=== PATIENT | female | born 1975 | race Caucasian/White ===

== ENCOUNTER → 2018-04-26 13:45 | Outpatient (CLI) | payer OTHER, SELFPAY ==
[2018-04-23 10:42] VITALS: BMI 20.9
--- NOTE | 2018-04-26 13:51 | BI_ITS ---
MAMMOGRAPHY - BILATERAL DIAGNOSTIC REASON FOR EXAM: Female, 43 years old. Left breast lump. PERTINENT HISTORY: Aunt with breast cancer. TECHNIQUE: Digital bilateral breast haja (3D mammographic acquisition) in the CC and MLO projections. 2-D mediolateral oblique (MLO) and craniocaudad (CC) views of both breasts were obtained. CAD: Full Field Digital Mammography with Computer Added Detection was performed. COMPARISON: Comparison is made with prior outside examination dated June 21, 2014. FINDINGS: Breast Composition: The breasts are heterogeneously dense, which may obscure small masses. The palpable abnormality corresponds to a 1 cm x 1 cm well-defined nodule in the axillary region of the left breast. This also evidence of a 1.3 cm x 1.5 cm nodule in the deep outer lateral portion of the left breast. Correlation with ultrasound is recommended. No other significant abnormalities are identified. There has been no significant change since the prior study. BI/DIAG MAMM W/CAD, BILAT IMPRESSION: Stable bilateral diagnostic mammogram. With the patient's history of a palpable abnormality in the upper outer quadrant of the left breast, correlation with ultrasound is recommended. ASSESSMENT CATEGORY: BIRADS Category 0: Incomplete. Need additional imaging evaluation. A letter regarding these results will be sent to the patient by the facility within 30 days. Approximately 10% of breast cancers are not detected by mammography. A normal mammogram should not delay biopsy of a clinically suspicious abnormality. Electronically Signed: Ok Dean MD at 14:56 EST Tel [phone], Service support ,
--- NOTE | 2018-04-26 13:51 | US_ITS ---
STUDY: ULTRASOUND BREAST - LEFT REASON FOR EXAM: Female, 43 years old. Palpable lump left breast. TECHNIQUE: Axial and longitudinal images of the LEFT breast were performed with a high resolution ultrasound transducer. COMPARISON: Comparison is made with prior mammogram done earlier in the day. FINDINGS: LEFT Breast: The palpable abnormality corresponds to a 1.6 cm x 1.6 centimeters x 1.1 cm well-defined slightly lobulated solid nodule at the 1:00 position of the breast 6 cm from the nipple. Blood flow is seen within the nodule. A biopsy is recommended. At the 2:00 position of the breast at 4 cm from the nipple, there is a 1.7 cm x 1.5 cm x 0.7 cm cyst. At the 2:00 additional breast or 6 on some nipple, there is a 5 mm x 5 mm x 3 mm cyst. US/Breast Limited Unilateral IMPRESSION: The palpable abnormality corresponds to a 1.6 cm x 1.6 cm x 1.1 cm hypoechoic solid nodule. A biopsy recommended for further evaluation. ASSESSMENT CATEGORY: BIRADS Category 4: Suspicious - Biopsy Should Be Considered. A letter regarding these results will be sent to the patient by the facility within 30 days. Electronically Signed: Ok Dean MD at 15:40 EST Tel [phone], Service support ,
--- OUTSIDE RECORDS SUMMARY | 2018-07-29 05:02 | XMS RPT_ITS ---
:1975 Author Organization OHIP Support Name Relationship Address Phone ROSS FRANCO Unavailable Unavailable + [facility] Unavailable [address] + [place] [address] ABEL BOLTON Unavailable [address] + [place] [address] ROSS FRANCO Unavailable . + [place] [address] [facility] Unavailable [address] + [place] [address] ABEL BOLTON Unavailable [address] + [place] [address] SALVADOR ROSS Unavailable . + [place] [address] [facility] Unavailable [address] + [place], [place] [address]ABEL PAL Unavailable [address] + [place] [address] SALVADOR ROSS Unavailable Unavailable + [facility] Unavailable [address] + [place] [address] ABEL BOLTON Unavailable [address] + [place] [address] SALVADOR ROSS Unavailable . + [place] [address] [facility] Unavailable [address] + [place] [address] CHE ABEL Unavailable [address] + [place] [address] SALVADOR ROSS Unavailable Unavailable + [facility] Unavailable [address] + [place] [address] ABEL BOLTON Unavailable [address] + [place] [address] [facility] Unavailable [address] + [place] [address] ABEL BOLTON Unavailable [address] + [place] [address] [facility] Unavailable [address] + [place] [address] [facility] Unavailable [address] + [place] [address] ABEL BOLTON Unavailable [address] + [place] [address] Care Team Providers Name Role Phone Kassandra Alfred Attending Unavailable Mily River Referring Unavailable BrookletKassandra salinas Attending Unavailable TimaKassandra salinas Referring Unavailable Primay Care Physicia, No Primary Care Unavailable Robotham, Kathryn Attending Unavailable Kira Sánchez Referring Unavailable Robotham, Kathryn Attending Unavailable Robotham, Kathryn Referring Unavailable Primay Care Physicia, No Primary Care Unavailable Robotham, Kathryn Attending Unavailable Primay Care Physicia, No Referring Unavailable Robotham, Kathryn Attending Unavailable Robotham, Kathryn Referring Unavailable Primay Care Physicia, No Primary Care Unavailable Kira Sánchez Attending Unavailable Aleta, Mily Referring Unavailable Aleta, Mily Primary Care Unavailable Robotham, Kathryn Attending Unavailable PROBLEMS PROBLEMS DATE TYPE CONDITION / CODE ATTENDING STATUS SOURCE 05/14/2018 Unknown G89.18 - Other acute Robotham, Active [place] postprocedural pain [facility] / G89.18(ICD-10) Hospital Repository 05/27/2018 Unknown D24.2 - Benign Robotham, Active [place] neoplasm of left [facility] breast / Hospital D24.2(ICD-10) Repository 04/26/2018 Unknown N63.20 - Unspecified BrookletKassandra salinas Active [place] lump in the left [facility] breast, unspecified Hospital quadrant / Repository N63.20(ICD-10) PROCEDURES PROCEDURES No Procedure Records FoundRESULTS RESULTS OPERATIVE REPORT Observed: 05/17/2018 Status: F Source: BEE 7:19 AM [facility] REPOSITORY [facility] Medical Records Department [address] [place] [address] Operative Report 05/14/18 1519 MR#: [id number] Acct: [id number] Name: TIGIST FRANCO Rep #: [id number] : 1975 43 From: Kathryn Cortez MD PCP: Care Physician, No Primary Status: [facility] Location: [facility] Report of Operation Date of Procedure: 05/14/18 Pre-Operative Diagnosis: Left breast benign phyllodes tumor Post-Operative Diagnosis: Same Surgery/Procedure Performed:: Excisional left breast biopsy, needle localization with ultrasound cyanide pot tender: Rosita Joya Type of Anesthesia:: General/Supplemental Anesthesiologist: Gerson Osman Special Medications: Clindamycin 600 IV x1 Specimen's removed: Left lumpectomy Estimated Blood Loss (mL): <10 cc Fluids Replaced: 1600 cc Description of Procedure: The patient was taken to the operating room and placed supine on the operating table. General anesthesia was induced. The left breast was prepped and draped in usual sterile fashion. A timeout was completed verifying correct patient, procedure, site, positioning, special equipment prior to beginning procedure. Ultrasound was used for the guided needle localization with the kopan's needle. A curvilinear incision was planned in such a way as to minimize the amount of dissection to reach the mass. Flaps were raised in the location of the wire confirmed. The wire was delivered into the wound. 2 silk ayrdxo-tq-dskuf stay suture was placed around the wire and used for traction. Dissection was then taken down circumferentially, taking care to include the entire localization needle and the entire nodule. The specimen and entire localizing wire were removed. The specimen was oriented and sent to radiology with the localization studies. Confirmation was received that the entire target lesion had been resected. The wound was irrigated. Hemostasis was checked. space was closed with [id number]-sz-[id number] 3-0 Vicryl suture. The breast incision was closed with interrupted sutures of 3-0 Vicryl and subcuticular sutures of 4-0 Monocryl. A dressing of fluff gauze and supportive bra placed. The patient tolerated procedure well was taken to the postanesthesia care in stable condition. - Complications none 05/17/18 0719 <Electronically signed by Kathryn Cortez MD> Date Kathryn Cortez MD CC: No Primary Care Physician; Kathryn Cortez MD Signed DISCHARGE INSTRUCTION Observed: 05/14/2018 Status: F Source: BEE 3:29 PM [facility] REPOSITORY [facility] Medical Records Department [address] [place] [address] Instructions for Home/Discharge Instructions 05/14/18 1527 MR#: [id number] Acct: [id number] Name: TIGIST FRANCO Rep #: [id number] : 1975 43 From: Kathryn Cortez MD PCP: Care Physician, No Primary Status: REG SDC Discharge Diet: Light diet - advance as tolerated Discharge Activity: May not drive while taking narcotic pain medications. Lifting Restrictions: no lifting >15 lbs for a few days on the left Call your doctor if your incision/area has: Continuous Slow Oozing, Sudden Increased Bleeding, Increased Pain/ Swelling, Increased Redness, Foul Smelling Discharge, Swelling at the incision site Call your doctor if you observe: Fever of 101 or Higher Remove Dressing in (days):: 2 Allergies/Adverse Reactions: Allergies amoxicillin trihydrate [From Augmentin] Allergy (Verified 05/14/18 12:40) Rash codeine Allergy (Verified 05/14/18 12:40) Rash potassium clavulanate [From Augmentin] Allergy (Verified 05/14/18 12:40) Rash Medications to take at Discharge psyllium husk 0.4 gram capsule 0.4 g PO DAILY 04/23/18 Hydrocodone Bitart/Apap 5-325 [Cyril 5MG-325MG] 1 - 2 tablet PO Q6H PRN PRN 4 Days #15 tablet 05/14/18 The following prescriptions were given: Hydrocodone Bitart/Apap 5-325 [Cyril 5MG-325MG] 1 - 2 tablet PO Q6H PRN PRN 4 Days #15 tablet PRN Reason: Pain Primary Care Physician: Care Physician,No Primary [Primary Care Provider] - Test Results: Test results from this visit will be discussed in further detail at your follow-up appointment, if applicable. Please Follow Up With: Kathryn Cortez MD - After 5:00/weekends call [phone] with any concerns When: Call for appointment in 2 weeks. Proposed Discharge Date: 05/14/18 05/14/18 1529 <Electronically signed by Kathryn Cortez MD> Date Kathryn Cortez MD CC: No Primary Care Physician Signed BREAST BIOPSY Observed: 05/14/2018 Status: F Source: BEE SPECIMEN 3:22 PM [facility] REPOSITORY [facility] Imaging Services [address] [place] [address] Breast Biopsy Specimen MR#: [id number] Acct: [id number] Name: TIGIST FRANCO Rep #: [id number] : 1975 F 43 From: Ok Dean MD PCP: Care Physician, No Primary Status: [facility] Study: Breast Biopsy Specimen Date of Exam: 05/14/18 Exam# [id number] Ordering Dr: Kathryn Cortez MD SURGICAL BREAST SPECIMEN RADIOGRAPH CLINICAL: Document presence of tissue clip marker in biopsy specimen. FINDINGS: Specimen shows presence of tissue clip marker. Electronically Signed: Ok Dean MD at 15:49 EST Tel [phone], Service support , BI/Breast Biopsy Specimen CC: No Primary Care Physician; Kathryn Cortez MD Apple Picking Supervisor: Signed BREAST MASTECTOMY Observed: 05/14/2018 Status: F Source: BEE (CHOOSE SIDE 2:30 PM [facility] REPOSITORY Patient: TIGIST FRANCO : 1975 (43/F) Acct Num: [id number] Phys: Kathryn Cortez MD Unit Num: [id number] Loc: [facility] Specimen: [id number] Received: 05/14/18 - 1806 Spec Type: BREAST TISSUES 1 TISSUES: Left breast, NOS COMMENT Reference is made to the patient's previous biopsy ([id number]) in which fibroadenoma/benign phyllodes tumor was identified. Case has been reviewed in consultation with Dr. Johnson who concurs with the above diagnosis. IDC:CE GROSS DESCRIPTION Received in fixative is one container labeled with the patient's name and designated left breast fibroadenoma. The specimen consists of an irregular fragment of wire-guided santos-yellow fatty tissue with no orientation measuring 3 x 2 x 2 cm. Two black sutures (one long and one short) are present. The specimen is inked, serially sectioned and totally submitted in four cassettes. / AM:paola 05/17/18 TC:1 CPT: 28141 HEADER OPERATION: Breast biopsy, ultrasound-guided NL in OR PRE-OP DIAGNOSIS: Benign phyllodes tumor of left breast TISSUE SUBMITTED: Left breast fibroadenoma/benign phyllodes tumor MICROSCOPIC DESCRIPTION Slides are reviewed. MICROSCOPIC DIAGNOSIS Tumor of left breast, excision: Benign phyllodes tumor, completely excised. Changes of previous biopsy. AM:paola 05/18/18 Signed Denzel Delaney DO 05/18/18 <signature on file> Performed By: #### PBREAST #### [facility] [address] [place], [place], [address] SURGERY VISIT REPORT Observed: 05/10/2018 Status: F Source: [place] 10:24 AM [facility] REPOSITORY [facility] [address] [place] [address] OFFICE VISIT Date of Service: 05/10/18 MR#: [id number] Acct: [id number] Name: TIGIST FRANCO Rep #: [id number] : 1975 Provider: Kathryn Cortez MD Age/Sex: 43/F Location: [facility] Status: Signed Intake Intake Visit Reasons: L Breast bx results and discuss Surgery Chief Complaint: post left breast biopsy Commercial Artist Lettering Required: No Is patient in pain?: No Allergies amoxicillin trihydrate [From Augmentin] Allergy (Verified 05/10/18 09:59) Rash codeine Allergy (Verified 05/10/18 09:59) Rash potassium clavulanate [From Augmentin] Allergy (Verified 05/10/18 09:59) Rash Medications psyllium husk 0.4 gram capsule 0.4 g PO DAILY 04/23/18 [History Confirmed 04/28/18] Is last menstrual period known: No Post menopausal: No Patient : No Subjective Details: Patient presents status post left breast biopsy ultrasound- guided. Pathology showed fibroadenoma/benign phyllodes, no malignancy. Patient states the site is doing well she is curious if the areas may be gotten a little bigger. Objective Details: Left breast: At about 1:00 6 cm from the nipple at 2 cm x 2 cm mobile mass, biopsy site healing well. Assessment AND Plan Problems 1. 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 Discussed the procedure along with risks including but not limited to bleeding, infection, seroma/hematoma, and anesthesia. Patient had no further questions at this time. Is agreeable to proceed with excisional breast biopsy. Kathryn Cortez M.D. Pager: [phone] [facility] [address] [place] [address], [address] [place] [address] Office: 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 [place] [address] OFFICE VISIT Date of Service: 04/28/18 MR#: [id number] Acct: [id number] Name: TIGIST FRANCO Rep #: [id number] : 1975 Provider: Kathryn Cortez MD Age/Sex: 43/F Location: [facility] Status: Signed Intake Vital Signs04/28/18 Body Mass Index (BMI) 20.9 04/28/18 Height 5 ft 3 in 04/28/18 Weight: 118 lb Intake Visit Reasons: Birads 4 L Breast U/S Mammo 04/26 Chief Complaint: left breast lump Commercial Artist Lettering Required: No Is patient in pain?: No Allergies amoxicillin trihydrate [From Augmentin] Allergy (Verified 04/28/18 09:56) Rash codeine Allergy (Verified 04/28/18 09:56) Rash potassium clavulanate [From Augmentin] Allergy (Verified 04/28/18 09:56) Rash Medications psyllium husk 0.4 gram capsule 0.4 g PO DAILY 04/23/18 [History Confirmed 04/28/18] PFSH Medical History Left breast lump (Acute) Abnormal mammogram of left breast (Acute) Fatigue (Acute) Surgical History History of bladder surgery (Acute) Hx of cone biopsy of cervix (Acute) Hx of hysterectomy (Acute) History of tonsillectomy and adenoidectomy (Acute) Hx of cholecystectomy (Acute) Gallbladder Removal (Acute) Tubal occlusion (Acute) tonsilectomy (Acute) hysterectomy (Acute) Family History Mother Hypertension Grandfather Cancer Grandmother Cancer Aunt Breast cancer Social History Smoking Status: Light Smoker (<10/day) second hand exposure: Yes alcohol intake: current alcohol intake frequency: holidays/special occasions only substance use type: does not use caffeine: Yes seatbelt use: always do you feel safe at home: Yes Female Reproductive History Menstrual Ab spontaneous: 2 HPI HPI HPI: TIIGST FRANCO, is a 43 F who presents to the office today for palpable left breast mass. Patient felt his last . She denies any pain or any changes to overlying skin or any trauma to either breast or any nipple discharge. Patient did have mammogram as well as an ultrasound which ultrasound did identify that the palpable abnormality corresponds to a 1.6 cm x 1.6 cm x 1.1 cm well-defined slightly lobulated solid nodule at 1:00 6 cm from the nipple and was given a BI-RADS 4 Rosy model Age: 43 Age of menses: 13 Age at time of first child: 21 Family history of breast cancer: No immediate relatives, 2 maternal aunts in their late 50s/early 60s Number of past breast biopsies: None Number breast biopsy showing atypical hyperplasia: N/A Race/ethnicity: 5 year risk 0.6% (average of 0.9%) Lifetime risk 8% (average 12%) ROS General General: Yes fatigue; no weight change or colon cancer Breast Breast: Yes left breast lump, abnormal US and abnormal mammogram; no right breast lump, nipple discharge, breast pain or breast enlargement Exam Const General: cooperative, comfortable, no acute distress Chest Breast Palpation: No nipple discharge Other: Left breast: Centimeter by centimeter mobile mass at 1:00 about 6 cm from the nipple, nontender, no change the overlying skin, otherwise the breasts is fibroglandular in nature no other masses appreciated in the left or right breast. No nipple discharge bilaterally no supraclavicular or axillary adenopathy bilaterally. Office Procedures Biopsy Provider Documentation Reviewed the ultrasound and mammography with patient and discussed the need for biopsy. Reviewed the procedure of biopsy with the mammotome vacuum assisted device. A marker clip will be placed to identify the location. Patient has been counseled to the risks/benefits of the procedure. I have explained the risks of the surgery, including but not limited to: infection, bleeding, injury to any blood vessels/nerves, scar tissue, missing the lesion, further surgery, etc. - the patient understands and agrees to proceed. I have answered all of the patient's questions to her satisfaction and she has no further questions. Signed consent is completed. Procedure: ultrasound-guided core biopsy Description of procedure: Patient was brought into the ultrasound room in the left breast was marked. A timeout was completed verifying correct patient, procedure, site, specially, prior to beginning procedure. The left breast was prepped and draped in usual sterile fashion and using local anesthesia was obtained with 1% lidocaine with epi. The lesion was located with the ultrasound at 1:00 6 cm from nipple. Small incision was made with 11 blade to introduced the mammotome through the skin. Under ultrasound guidance multiple core samples were obtained using then 13-gauge mammotome and sent in formalin for pathology. The mammotome mammostar clip was then deployed into the biopsy cavity under ultrasound guidance and a picture was taken. Upon completion procedure hemostasis was obtained and a Steri- Strip and OpSite were placed. The patient tolerated the procedure well and left the office in good condition. Alert Brenton Yes Biopsy Breast Biopsy: 76370 US Guidance Procedure Time Out Time Out Informed consent given: Yes Consent signed: Yes Time out checklist: patient, procedure, site marked/identified, positioning of patient, supplies available, allergies confirmed, team agrees on procedure Time out staff in room: Yes Time out verified: Yes Time out date: 04/28/18 Time out time: 10:20 Assessment AND Plan Problems 1. Breast mass, left N63.20 Plan Patient underwent ultrasound-guided left breast biopsy in office. Patient tolerated procedure well. Will contact patient with pathology results in 3-5 days. Patient had no further questions at this time. Kathryn Cortez M.D. Pager: [phone] [facility] [address] [place] [address], [address] [place] [address] Office: [phone] Plan Detail Follow Up We will contact with pathology results Coding Level of Care Code Attention Brenton Diagnoses Breast mass, left N63.20 Additional Codes Biopsy - Breast Biopsy: 46579 US Guidance (05958) Comment [id number] 04/29/18 0951 <Electronically signed by Kathryn Cortez MD> Date Kathryn Cortez MD Cosigner Signature: Date (if applicable) CC: Kira Sánchez MD BREAST BIOPSY Observed: 04/28/2018 Status: F Source: BEE (CHOOSE SITE) 10:30 AM [facility] REPOSITORY Patient: TIGIST FRANCO : 1975 (43/F) Acct Num: [id number] Phys: Diego DOMINGUEZ,[facility] Unit Num: [id number] Loc: [facility] Specimen: [id number] Received: 04/28/18 - 1318 Spec Type: BREAST BX TISSUES 1 TISSUES: Left breast, NOS COMMENT Correlation with clinical, radiologic findings and appropriate follow up are necessary. Case has been reviewed in consultation with Dr. Delaney who concurs with the above diagnosis. IDC:AM GROSS DESCRIPTION Received in fixative is one container labeled with the patient's name and designated left breast biopsy. The specimen consists of multiple irregular and elongated fragments of yellow soft tissue that in aggregate measure 2.5 x 1.2 x 0.1 cm. The specimen is totally submitted in one cassette. / AM:paola TC:1 CPT: 72554 HEADER OPERATION: Ultrasound-guided mammotome left breast at 1 o'clock, 6 cm from nipple PRE-OP DIAGNOSIS: Abnormal mammogram left breast TISSUE SUBMITTED: Left breast biopsy at 1 o'clock, 6 cm from nipple MICROSCOPIC DESCRIPTION Slides are reviewed. MICROSCOPIC DIAGNOSIS Left breast, 1 o'clock at 6 cm from nipple, ultrasound-guided mammotome core biopsy: Fibroadenoma/benign phyllodes tumor. Negative for atypia or malignancy. SJ:paola 04/29/18 Signed Layton Ramsey MD 04/29/18 <signature on file> Performed By: #### PBRBX #### [facility] [address] [place], [address] DIAG MAMM W/CAD, Observed: 04/26/2018 Status: F Source: BEE BILAT 1:51 PM [facility] REPOSITORY [facility] Imaging Services [address] [place] [address] DIAG MAMM W/CAD, BILAT MR#: [id number] Acct: [id number] Name: TIGIST FRANCO Rep #: [id number] : 1975 F 43 From: Ok Dean MD PCP: Care Physician, No Primary Status: REG CLI Study: DIAG MAMM W/CAD, BILAT Date of Exam: 04/26/18 Exam# [id number] Ordering Dr: Kassandra Alfred SUBSTATION OPERATOR HELPER GENERATION-C MAMMOGRAPHY - BILATERAL DIAGNOSTIC REASON FOR EXAM: Female, 43 years old. Left breast lump. PERTINENT HISTORY: Aunt with breast cancer. TECHNIQUE: Digital bilateral breast haja (3D mammographic acquisition) in the CC and MLO projections. 2-D mediolateral oblique (MLO) and craniocaudad (CC) views of both breasts were obtained. CAD: Full Field Digital Mammography with Computer Added Detection was performed. COMPARISON: Comparison is made with prior outside examination dated June 21, 2014. FINDINGS: Breast Composition: The breasts are heterogeneously dense, which may obscure small masses. The palpable abnormality corresponds to a 1 cm x 1 cm well- defined nodule in the axillary region of the left breast. This also evidence of a 1.3 cm x 1.5 cm nodule in the deep outer lateral portion of the left breast. Correlation with ultrasound is recommended. No other significant abnormalities are identified. There has been no significant change since the prior study. BI/DIAG MAMM W/CAD, BILAT IMPRESSION: Stable bilateral diagnostic mammogram. With the patient's history of a palpable abnormality in the upper outer quadrant of the left breast, correlation with ultrasound is recommended. ASSESSMENT CATEGORY: BIRADS Category 0: Incomplete. Need additional imaging evaluation. A letter regarding these results will be sent to the patient by the facility within 30 days. Approximately 10% of breast cancers are not detected by mammography. A normal mammogram should not delay biopsy of a clinically suspicious abnormality. Electronically Signed: Ok Dean MD at 14:56 EST Tel [phone], Service support , CC: CHARLETTE Alfred; No Primary Care Physician Apple Picking Supervisor: Signed BREAST LIMITED Observed: 04/26/2018 Status: F Source: BEE UNILATERAL 1:51 PM [facility] REPOSITORY [facility] Imaging Services [address] [place] [address] Breast Limited Unilateral MR#: [id number] Acct: [id number] Name: TIGIST FRANCO Rep #: [id number] : 1975 F 43 From: Ok Dean MD PCP: Care Physician, No Primary Status: REG CLI Study: Breast Limited Unilateral Date of Exam: 04/26/18 Exam# [id number] Ordering Dr: Kassandra Alfred SUBSTATION OPERATOR HELPER GENERATION-C STUDY: ULTRASOUND BREAST - LEFT REASON FOR EXAM: Female, 43 years old. Palpable lump left breast. TECHNIQUE: Axial and longitudinal images of the LEFT breast were performed with a high resolution ultrasound transducer. COMPARISON: Comparison is made with prior mammogram done earlier in the day. FINDINGS: LEFT Breast: The palpable abnormality corresponds to a 1.6 cm x 1.6 centimeters x 1.1 cm well-defined slightly lobulated solid nodule at the 1:00 position of the breast 6 cm from the nipple. Blood flow is seen within the nodule. A biopsy is recommended. At the 2:00 position of the breast at 4 cm from the nipple, there is a 1.7 cm x 1.5 cm x 0.7 cm cyst. At the 2:00 additional breast or 6 on some nipple, there is a 5 mm x 5 mm x 3 mm cyst. US/Breast Limited Unilateral IMPRESSION: The palpable abnormality corresponds to a 1.6 cm x 1.6 cm x 1.1 cm hypoechoic solid nodule. A biopsy recommended for further evaluation. ASSESSMENT CATEGORY: BIRADS Category 4: Suspicious - Biopsy Should Be Considered. A letter regarding these results will be sent to the patient by the facility within 30 days. Electronically Signed: Ok Dean MD at 15:40 EST Tel [phone], Service support , CC: CHARLETTE Alfred; No Primary Care Physician Apple Picking Supervisor: Signed STAFF AUDITOR OFFICE VISIT Observed: 04/23/2018 Status: F Source: [place] REPORT 10:54 AM [facility] REPOSITORY [facility] [address] [place] [address] OFFICE VISIT Date of Service: 04/23/18 MR#: [id number] Acct: [id number] Name: TIGIST FRANCO Rep #: [id number] : 1975 Provider: CHARLETTE Alfred Age/Sex: 43/F [place] [facility]: Signed Intake Vital Signs04/23/18 Height 5 ft 3 in 04/23/18 Weight: 118 lb 04/23/18 Body Mass Index (BMI) 20.9 04/23/18 Blood Pressure 92/58 L Intake Visit Reasons: LEFT BREAST LUMP Chief Complaint: left breast lump Commercial Artist Lettering Required: No Is patient in pain?: No Allergies amoxicillin trihydrate [From Augmentin] Allergy (Verified 04/23/18 10:43) Rash codeine Allergy (Verified 04/23/18 10:43) Rash potassium clavulanate [From Augmentin] Allergy (Verified 04/23/18 10:43) Rash Medications promethazine 25 mg tablet 25 mg PO Q6H PRN PRN tab 04/23/18 [History] psyllium husk 0.4 gram capsule 0.4 g PO DAILY 04/23/18 [History Confirmed 04/23/18] Is last menstrual period known: No Post menopausal: No Patient : No : No PFSH Surgical History Gallbladder Removal (Acute) Tubal occlusion (Acute) hysterectomy (Acute) tonsilectomy (Acute) Family History Mother Hypertension Grandfather Cancer Grandmother Cancer Social History Smoking Status: Light Smoker (<10/day) alcohol intake: current alcohol intake frequency: holidays/special occasions only substance use type: does not use seatbelt use: always do you feel safe at home: Yes HPI LEFT BREAST LUMP: Details: TIGIST FRANCO is a 43 year old who presents for breast lump left breast noted last night. Does routine breast exams. Pregancy History 3 Elective abortions Hx Para Spontaneous abortions 2 Exam Chest Chest palpation AND inspection: normal inspection of the chest Breast inspection: normal inspection of the breasts Breast palpation: normal palpation of the breasts (right), abnormal palpation of the breast (left, just below axilla, 6cm from areola, 1:00 position.) left upper outer: mass (firm, mobile) Assessment AND Plan Problems 1. Left breast mass N63.20 Plan Bilateral diagnostic mammogram with left breast ultrasound Orders Orders: Coding Level of Care Code Off vis,est,level 3 Diagnoses Left breast mass N63.20 04/23/18 1054 <Electronically signed by Kassandra LANDA> Date Kassandra LANDA Cosigner Signature: Date (if applicable) CC: STAFF AUDITOR OFFICE VISIT Observed: 10/31/2017 Status: F Source: [place] REPORT 6:36 AM [facility] [address] [place] [address] OFFICE VISIT Date of Service: 10/30/17 MR#: [id number] Acct: [id number] Name: TIGIST FRANCO Rep #: [id number] : 1975 Provider: Kira Sánchez MD Age/Sex: 42/F [place] [facility] [place]: Signed Intake Vital Signs10/30/17 Height 5 ft 3 in 10/30/17 Weight: 120 lb 6 oz 10/30/17 Body Mass Index (BMI) 21.3 10/30/17 Blood Pressure 110/76 Intake Visit Reasons: BLEEDING Is patient in pain?: Yes (lower back pain) Pain scale (1-10): 5 Allergies amoxicillin trihydrate [From Augmentin] Allergy (Verified 10/30/17 10:03) Rash codeine Allergy (Verified 10/30/17 10:03) Rash potassium clavulanate [From Augmentin] Allergy (Verified 10/30/17 10:03) Rash Medications Hydrocodone/Acetaminophen [Vicodin 5-300 mg Tablet] 1 tab PO Q6H PRN PRN #12 tab 05/18/13 [Rx Confirmed 10/30/17] Metronidazole [Flagyl] 500 mg PO Q6H #40 tab 05/18/13 [Rx Confirmed 10/30/17] Psyllium [Metamucil] 1 packet PO DAILY 05/18/13 [History Confirmed 10/30/17] proMETHazine tablet [Phenergan] 25 mg PO Q6H PRN PRN #12 tab 05/18/13 [Rx Confirmed 10/30/17] metronidazole 500 mg tablet 500 mg PO BID 7 Days #14 tab 10/29/17 [Rx Confirmed 10/30/17] ciprofloxacin 500 mg tablet 500 mg PO BID 3 Days #6 tab 10/30/17 [Rx Confirmed 10/30/17] PFSH Surgical History Gallbladder Removal (Acute) Tubal occlusion (Acute) hysterectomy (Acute) tonsilectomy (Acute) Family History Mother Hypertension Grandfather Cancer Grandmother Cancer Social History Smoking Status: Light Smoker (<10/day) alcohol intake: current alcohol intake frequency: holidays/special occasions only substance use type: does not use seatbelt use: always do you feel safe at home: Yes HPI BLEEDING: Details: TIGIST FRANCO is a 42 year old who presents for bleeding and dysuria yesterday, getting ready to go on vacation. she denies recent intercourse and denies pelvic pain. she has a history of a hysterectomy several years ago Pregancy History 3 Elective abortions Hx Para Spontaneous abortions 2 ROS Const Constitutional: Reports system reviewed and no additional complaints, except as docu GI GI: Reports system reviewed and no additional complaints, except as docu : Reports as per HPI Exam Const General: cooperative, healthy appearing, comfortable, no acute distress External Female Exam: normal external appearance, normal appearance of the urethra Urethra: normal appearance of the urethra Speculum Exam - Vagina: normal appearance of the vagina, other (normal vaginal length, apex well supprted and healed, intact no granulation) Speculum Exam - Cervix: cervix absent Bimanual Exam- Vagina AND Uterus: uterus absent Bimanual Exam- Adnexa, other: adnexae non-tender, pelvic support normal Pelvic Support: normal Other: vaginal cuff normal and intact, good vaginal length, no granulation tissue present Assessment AND Plan Problems 1. Dysuria R30.0 Plan Orders placed: none ACOG trimester education reviewed and updated. see problem list details for updated plan management information. GA appropriate handout given. Medications Changed: Coding Level of Care Code Off vis,est,level 3 Diagnoses Dysuria R30.0 10/31/17 0636 <Electronically signed by Kira Sánchez MD> Date Kira Sánchez MD Cosigner Signature: Date (if applicable) CC: PROGRESS Observed: 10/30/2017 Status: COMPLETED Source: [place] 9:20 AM [facility] REPOSITORY O ID: [id number] Author: Liliya Mora Service: (none) Author Type: Nurse Practitioner Type: Progress Notes Filed: 10/30/2017 9:39 AM Note Text: Subjective HPI HPI Tigist Franco is a 42 year old female who presents today for CC of vaginal bleeding, possible UTI This started . She called Dr. Sánchez's office and was placed on flagyl and told if bleeding does not stop to call the office on Thursday to be seen. She has a history of a hysterectomy and bladder sling, unsure if she had mesh placed. She does have urinary frequency and urgency, but this started over the past several months. She denies pain with urination. Risk factors sexually active. PMH LAVH, stress incontinence, bladder sling. BP 100/70 Pulse 90 Temp 36.1 ?C (97 ?F) (Left Tympanic) Resp 16 Wt 54.4 kg (120 lb) LMP 11/30/2011 BMI 20.92 kg/m? ALLERGIES Allergen Reactions - Augmentin [Amoxicil* Rash - Ceftin [Cefuroxime * ?Itching possibly - Codeine Rash - Prednisone Intolerance heart racing ACTIVE PROBLEM LIST Allergic Rhinitis, Cause Unspecified Unspecified Musculoskeletal Disorders and Symptoms Referable to Neck Stress Incontinence Family History Problem Relation Age of Onset - Breast Cancer Maternal Aunt - Cancer Maternal Aunt - Colon Cancer Maternal Grandfather - Colon Cancer Paternal Grandmother - Hypertension Mother Social History Marital status: Spouse name: Shawn Years of education: Number of children: 3 Occupational History Occupation Employer Comment [employer]* Part-time Social History Main Topics Smoking status: Current Some Day Smoker Packs/day: 0.00 Years: 1.00 Types: Cigarettes Smokeless tobacco: Never Used Comment: 5 cigarettes per week Alcohol use: No Drug use: No Sexual activity: Yes Partners with: Male control/protection: Surgical Comment: Hysterectomy Social History Narrative 3 kids Dental assist Review of Systems Constitutional: Negative for chills, fever and malaise/fatigue. Genitourinary: Positive for frequency and urgency. Negative for dysuria, flank pain and hematuria. Vaginal bleeding Skin: Negative for rash. Neurological: Negative for headaches. Objective Physical Exam ASSESSMENT/PLAN: 1. Vaginal bleeding - ICD9: 623.8, ICD10: N93.9 (primary diagnosis) Due to nature of symptoms, called Dr. Sánchez's office and they agreed to see patient today, sent directly to office. 2. Gross hematuria - ICD9: 599.71, ICD10: R31.0 - UA DIP B/O Diagnosis and treatment plan were discussed and questions were answered to the patient's satisfaction. Pt acknowledged understanding of concepts and follow up plan. Specific signs and symptoms that would indicate the need for higher level of care were discussed in detail warranting prompt ER evaluation. Liliya Mora APRN.CNP CNOV Observed: 10/30/2017 Status: COMPLETED Source: [place] 9:00 AM [facility] REPOSITORY Office Visit ([facility]) SALVADORTIGIST CALDERON ([id number]) 1975 F Date Time Provider Department 10/30/17 9:00 AM LILIYA MORA (ESTRELLA) [facility] During your visit today, we recorded the following information about you: Temperature Pulse Respiration Blood pressure 97 degrees 90/minute 16/minute 100/70 Weight 54.4 kg Liliya Mora APRN.CNP 10/30/2017 9:39 AM Signed Subjective HPI HPI Tigist Fountain Salvador is a 42 year old female who presents today for CC of vaginal bleeding, possible UTI This started . She called Dr. Sánchez's office and was placed on flag and told if bleeding does not stop to call the office on Thursday to be seen. She has a history of a hysterectomy and bladder sling, unsure if she had mesh placed. She does have urinary frequency and urgency, but this started over the past several months. She denies pain with urination. Risk factors sexually active. PMH LAVH, stress incontinence, bladder sling. BP 100/70 Pulse 90 Temp 36.1 ?C (97 ?F) (Left Tympanic) Resp 16 Wt 54.4 kg (120 lb) LMP 11/30/2011 BMI 20.92 kg/m? ALLERGIES Allergen Reactions - Augmentin [Amoxicil* Rash - Ceftin [Cefuroxime * ?Itching possibly - Codeine Rash - Prednisone Intolerance heart racing ACTIVE PROBLEM LIST Allergic Rhinitis, Cause Unspecified Unspecified Musculoskeletal Disorders and Symptoms Referable to Neck Stress Incontinence Family History Problem Relation Age of Onset - Breast Cancer Maternal Aunt - Cancer Maternal Aunt - Colon Cancer Maternal Grandfather - Colon Cancer Paternal Grandmother - Hypertension Mother Social History Marital status: Spouse name: Shawn Years of education: Number of children: 3 Occupational History Occupation Employer Comment [employer]* Part-time Social History Main Topics Smoking status: Current Some Day Smoker Packs/day: 0.00 Years: 1.00 Types: Cigarettes Smokeless tobacco: Never Used Comment: 5 cigarettes per week Alcohol use: No Drug use: No Sexual activity: Yes Partners with: Male control/protection: Surgical Comment: Hysterectomy Social History Narrative 3 kids Dental assist Review of Systems Constitutional: Negative for chills, fever and malaise/fatigue. Genitourinary: Positive for frequency and urgency. Negative for dysuria, flank pain and hematuria. Vaginal bleeding Skin: Negative for rash. Neurological: Negative for headaches. Objective Physical Exam ASSESSMENT/PLAN: 1. Vaginal bleeding - ICD9: 623.8, ICD10: N93.9 (primary diagnosis) Due to nature of symptoms, called Dr. Sánchez's office and they agreed to see patient today, sent directly to office. 2. Gross hematuria - ICD9: 599.71, ICD10: R31.0 - UA DIP B/O Diagnosis and treatment plan were discussed and questions were answered to the patient's satisfaction. Pt acknowledged understanding of concepts and follow up plan. Specific signs and symptoms that would indicate the need for higher level of care were discussed in detail warranting prompt ER evaluation. Liliya Mora APRN.CO FOUNDER Referring Provider: SELF [200] Allergies As of Date: 10/30/2017 Noted Allergy Reaction AUGMENTIN (AMOXICILLIN-POT CLAVUL*01/31/2005 2 - Rash CEFTIN (CEFUROXIME AXETIL) 05/31/2009 Comments: ?Itching possibly CODEINE 01/31/2005 2 - Rash PREDNISONE 06/20/2016 5 - Intolerance Comments: heart racing Date Reviewed: 10/30/2017 Reviewed by: Liliya (Safety Lamp Keeper) Morgan - Fully Assessed Reason for Visit: Hematuria [335] Primary Visit Diagnosis:Vaginal bleeding [N93.9] Other Visit Diagnosis:Gross hematuria [R31.0] Order(s):UA DIP B/O [7231405] Order #: [id number] Prescriptions as of 10/30/2017 Sig: FLAGYL ORAL Take by mouth. * METAMUCIL (SUGAR) ORAL POWDER Take one(1) tablet daily. ALBUTEROL SULFATE HFA 90 MCG/* Inhale 2 Puffs as instructed * Problem List As Of Date 10/30/2017 Noted Resolved PANIC TYPE ANXIETY [F41.0] INVALID FOR*05/22/2009 ALLERGIC RHINITIS NOS [J30.9] INVALID FOR* NECK DISORDER/SYMPT NOS [M53.82] INVALID FOR* Skin Lesion [L98.9] INVALID FOR*05/22/2009 Menometrorrhagia [N92.1] INVALID FOR*02/18/2012 Mixed incontinence [N39.46] INVALID FOR*05/26/2014 Stress incontinence [N39.3] INVALID FOR* Encounter Status:Closed by LILIYA MORA CNP on 10/30/17 ALLERGIES ALLERGIES DATE TYPE / NAME / CODE REACTION SEVERITY SOURCE CODE 05/14/2018 Drug amoxicillin Rash Unknown [place] Allergy/41 trihydrate/[id number] [facility] [id number]( 2707(RXNORM) [facility]) Repository 05/14/2018 Drug potassium Rash Unknown [place] Allergy/41 clavulanate/F0000 [facility] [id number]( 90617(RXNORM) [facility]) Repository 05/14/2018 Drug codeine/[id number] Rash Unknown [place] Allergy/41 0(RXNORM) [facility] 1719620([facility]) Repository 06/20/2016 DRUG PREDNISONE INTOLERANCE [address] [id number]( Repository [facility]) 05/31/2009 DRUG CE[facility]OXIME AXETIL [address] [id number] 01/31/2005 DRUG/17088 AMOXICILLIN-POT RASH [facility] 1003(SN[place] CLAVULANATE [facility] [place] [facility]) Repository 01/31/2005 DRUG CODEINE RASH [address] [id number][facility] ENCOUNTERS ENCOUNTERS ADMIT/DISCHARGE ACCOUNT ADMITTING ENCOUNTER LOCATION SOURCE NUMBER CLASS 05/14/2018/05/14/19 [id number] Ambulatory [place] 19 [facility] ing:SDCRoom: Repository AC18 05/14/2018/05/14/19 [id number] Ambulatory BMSBuilding:B [place] 19 MS.[facility] Repository 05/10/2018/05/10/20 [id number] Ambulatory BMSBuilding:B [place] 18 MS.[facility] Repository 04/28/2018 [id number] Ambulatory [facility] ing:LABSPEC Repository 04/28/2018/04/28/20 [id number] Ambulatory BMSBuilding:B [place] 18 MS.[facility] Repository 04/26/2018 [id number] Ambulatory [facility] ing:OPUS Repository 04/23/2018/04/23/20 [id number] Ambulatory BMSBuilding:B [place] 18 MS.[facility] Repository 10/30/2017/10/31/19 [id number] Ambulatory BMSBuilding:B [place] 18 MS.[facility] Repository 10/30/2017/10/31/19 [id number] Ambulatory [address] Repository PAYERS PAYERS ENCOUNTER GUARANTOR PAYER SUBSCRIBER SOURCE 05/14/2018 TIGIST L Primary TIGIST L [place] [id number] Insurance:ANTHEMPolic HENSELDOB: [facility] DRWEST y Number: [id number] [id number] Repository 42[address]Uja: [phone] Date:5042-54-57QP [phone] () [address] [place] [address] 54858DS: 05/14/2018 Secondary NOT GIVENUNK [place] Insurance:SELF PAY [facility] Number: Effective Repository Date:2018-05-12 05/14/2018 TIGIST L Primary TIGIST L [place] [id number] Insurance:ANTHEMPolic HENSELDOB: [facility] DRWEST y Number: [id number] [id number] Repository [address]Ber: [phone] Date:9908-97-45XQ [phone] () [id number] [place] [address] 74941XI: 05/14/2018 Secondary NOT GIVENUNK [place] Insurance:SELF PAY [facility] Number: Effective Repository Date:2018-05-14 05/10/2018 TIGIST Fountain Primary TIGIST [place] [id number] Insurance:MEDICAL HENSELDOB: [facility] [id number] [place] Number: Repository [address]Wlu: [phone] [id number] [phone] (HP) Date:5552-39-06FR [address] [address]TX: 05/10/2018 Secondary NOT GIVENUNK [place] Insurance:SELF PAY [facility] Number: Effective Repository Date:2018-05-10 04/28/2018 TIGIST Fountain Primary TIGIST Fountain [place] [id number] Insurance:MEDICAL HENSELDOB: [facility] [id number] [place] Number: Repository [id number]: [phone] [id number] [phone] (HP) Date:9918-52-64WE [address] [address]VU: 04/28/2018 Secondary NOT GIVENUNK [place] Insurance:SELF PAY [facility] Number: Effective Repository Date:2018-04-28 04/28/2018 TIGIST Fountain Primary TIGIST Fountain [place] [id number] Insurance:MEDICAL HENSELDOB: [facility] [id number] [place] Number: Repository [id number]: [phone] [id number] [phone] (HP) Date:6742-43-69GR [address] [address]NG: 04/28/2018 Secondary NOT GIVENUNK [place] Insurance:SELF PAY [facility] Number: Effective Repository Date:2018-04-28 04/26/2018 TIGIST Fountain Primary TIGIST Fountain [place] [id number] Insurance:MEDICAL HENSELDOB: [facility] [id number] [place] Number: Repository [address]Ocy: [phone] [id number] [phone] (HP) Date:2151-02-55GV [address] [address]UB: 04/26/2018 Secondary NOT GIVENUNK [place] Insurance:SELF PAY [facility] Number: Effective Repository Date:2018-04-23 04/23/2018 [place] [id number] Insurance:MEDICAL HENSELDOB: [facility] [id number] Number: Repository [address]Ald: [phone] [id number] [phone] () Date:7088-23-63GV [address] [address]NK: 04/23/2018 Secondary NOT GIVENUNK [place] Insurance:SELF PAY [facility] Number: Effective Repository Date:2018-04-23 10/30/2017 [place] [id number] Insurance:MEDICAL HENSELDOB: [facility] [id number] Number: Repository [id number]: [phone]) [id number] [phone] () Date:6852-08-76YH [address] [address]GY: 10/30/2017 Secondary NOT GIVENUNK [place] Insurance:SELF PAY [facility] Number: Effective Repository Date:2017-10-30
== END ==
PROVIDERS: Referring Provider Nurse Practitioner Women's Health; Visit Provider Nurse Practitioner Women's Health
DX: N63.20 Unspecified lump in the left breast, unspecified quadrant (principal)
CPT/HCPCS: 76642; 77062; 77063; 77066; G0279

== ENCOUNTER → 2018-04-28 10:30 | Outpatient (CLI) | payer OTHER, SELFPAY ==
[2018-04-28 09:57] VITALS: BMI 20.9
--- NOTE | 2018-04-28 10:30 | BRBX_PTH ---
PATIENT: [place] FRANCO LOC: [facility] U#:[id number] AGE/SX: 50/F ROOM: RE04/28/[address]: Dr. Kathryn Cortez MD : 1975 BED: DIS: SPEC #: [id number] RECD: 04/28/18 13:19 STATUS: GREG ELYSE #: [id number] AVELINO: 04/28/18 10:[address]: Kathryn Cortez DEPT: SURGICAL PATHOLOGY RECD BY: Hilario Roblero ENTERED: 04/28/18 13:44 SP TYPE: BREAST BX SEPIDEH DR: No Primary Care Phys Tissues: Left breast, NOS Procedures: Surgery Specimen Level IV HEADER OPERATION: Ultrasound-guided mammotome left breast at 1 o'clock, 6 cm from nipple PRE-OP DIAGNOSIS: Abnormal mammogram left breast TISSUE SUBMITTED: Left breast biopsy at 1 o'clock, 6 cm from nipple MICROSCOPIC DIAGNOSIS Left breast, 1 o'clock at 6 cm from nipple, ultrasound-guided mammotome core biopsy: Fibroadenoma/benign phyllodes tumor. Negative for atypia or malignancy. ELEANOR:paola 04/29/18 COMMENT Correlation with clinical, radiologic findings and appropriate follow up are necessary. Case has been reviewed in consultation with Dr. Delaney who concurs with the above diagnosis. IDC:AM MICROSCOPIC DESCRIPTION Slides are reviewed. GROSS DESCRIPTION Received in fixative is one container labeled with the patient's name and designated left breast biopsy. The specimen consists of multiple irregular and elongated fragments of yellow soft tissue that in aggregate measure 2.5 x 1.2 x 0.1 cm. The specimen is totally submitted in one cassette. / AM:paola 04/28/18 TC:1 CPT: 03571
--- OUTSIDE RECORDS SUMMARY | 2018-07-30 18:50 | XMS RPT_ITS ---
:1975 Author Organization OHIP Support Name Relationship Address Phone ROSS FRANCO Unavailable Unavailable + [facility] Unavailable [address] + [place] [address] ABEL BOLTON Unavailable [address] + [place] [address] ROSS FRANCO Unavailable . + [place] [address] [facility] Unavailable [address] + [place] [address] ABEL BOLTON Unavailable [address] + [place] [address] SALVADOR ROSS Unavailable . + [place] [address] [facility] Unavailable [address] + [place], [place] [address]ABEL PAL Unavailable [address] + [place] [address] SALVADOR ROSS Unavailable Unavailable + [facility] Unavailable [address] + [place] [address] ABEL BOLTON Unavailable [address] + [place] [address] SALVADOR ROSS Unavailable . + [place] [address] [facility] Unavailable [address] + [place] [address] CHE ABEL Unavailable [address] + [place] [address] SALVADOR ROSS Unavailable Unavailable + [facility] Unavailable [address] + [place] [address] ABEL BOLTON Unavailable [address] + [place] [address] [facility] Unavailable [address] + [place] [address] ABEL BOLTON Unavailable [address] + [place] [address] [facility] Unavailable [address] + [place] [address] [facility] Unavailable [address] + [place] [address] ABEL BOLTON Unavailable [address] + [place] [address] Care Team Providers Name Role Phone Kassandra Alfred Attending Unavailable Mily River Referring Unavailable OrmsbyKassandra salinas Attending Unavailable TimaKassandra salinas Referring Unavailable [...] Unknown G89.18 - Other acute Robotham, Active [place] postprocedural pain [facility] / G89.18(ICD-10) Hospital Repository 05/27/2018 Unknown D24.2 - Benign Robotham, Active [place] neoplasm of left [facility] breast / Hospital D24.2(ICD-10) Repository 04/26/2018 Unknown N63.20 - Unspecified OrmsbyKassandra salinas Active [place] lump in the left [facility] breast, unspecified Hospital quadrant / Repository N63.20(ICD-10) PROCEDURES PROCEDURES No Procedure Records FoundRESULTS RESULTS OPERATIVE REPORT Observed: 05/17/2018 Status: F Source: [place] 7:19 AM [facility] REPOSIT[facility] Medical Records Department [address] [place] [address] Operative Report 05/14/18 1519 MR#: [id number] Acct: [id number] Name: TIGIST FRANCO Rep #: [id number] : 1975 43 From: Kathryn Cortez MD PCP: Care Physician, No Primary Status: [facility] [place] [facility] [place] of Operation Date of Procedure: 05/14/18 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 2 silk qncokh-gm-cswec stay suture was placed around the wire [...] Hemostasis was checked. space was closed with jhtelf-cg-gvewm 3-0 Vicryl suture. The breast incision was [...] 05/14/2018 Status: F Source: [place] 3:29 PM [facility] REPOSITORY [facility] Medical Records Department [address] [place] [address] Instructions for Home/Discharge Instructions 05/14/18 1527 MR#: [id number] Acct: [id number] Name: TIGIST FRANCO Rep #: [id number] : 1975 43 From: Kathryn Cortez MD [...] g PO DAILY 04/23/18 Hydrocodone Bitart/Apap 5-325 [[place] 5MG-325MG] 1 - 2 tablet PO Q6H PRN PRN 4 Days #15 tablet 05/14/18 The following prescriptions were given: Hydrocodone Bitart/Apap 5-325 [[place] 5MG-325MG] 1 - 2 tablet PO Q6H PRN PRN 4 Days #15 tablet PRN Reason: Pain Primary Care Physician: Care Physician,No Primary [Primary Care Provider] - Test Results: Test results from this visit will be discussed in further detail at your follow-up appointment, if applicable. Please Follow Up With: Kathryn Cortez MD - After 5:00/weekends call [phone] with any concerns When: Call for appointment in 2 weeks. Proposed Discharge Date: 05/14/18 05/14/18 1529 <Electronically signed by Kathryn Cortez MD> Date Kathryn Cortez MD CC: No Primary Care Physician Signed BREAST BIOPSY Observed: 05/14/2018 Status: F Source: [place] SPECIMEN 3:22 PM [facility] REPOSITORY [facility] Imaging Services [address] [place] [address] Breast Biopsy Specimen MR#: [id number] Acct: [id number] Name: TIGIST FRANCO Rep #: [id number] : 1975 F 43 From: Ok Dean MD PCP: Care Physician, No Primary Status: [facility] Study: Breast Biopsy Specimen Date of Exam: 05/14/18 Exam# [id number] Ordering Dr: Kathryn Cortez MD SURGICAL BREAST SPECIMEN RADIOGRAPH CLINICAL: Document presence of tissue clip marker in biopsy specimen. FINDINGS: Specimen shows presence of tissue clip marker. Electronically Signed: Ok Dean MD at 15:49 EST Tel [phone], Service support , BI/Breast Biopsy Specimen CC: No Primary Care Physician; Kathryn Cortez MD Out Patient Therapist: Signed BREAST MASTECTOMY Observed: 05/14/2018 Status: F Source: [place] (CHOOSE SIDE 2:30 PM [facility] RE[facility] Patient: TIGIST FRANCO : 1975 (43/F) Acct Num: [id number] Phys: Kathryn Cortez MD Unit Num: [id number] [place] [facility] [place]imen: [id number] Received: 05/14/18 - 9036 Spec Type: BREAST TISSUES 1 TISSUES: Left breast, NOS COMMENT Reference is made to the patient's previous biopsy ([id number]) in which fibroadenoma/benign phyllodes tumor was identified. [...] four cassettes. / AM:paola 05/17/18 TC:1 CPT: 78166 HEADER OPERATION: Breast biopsy, ultrasound-guided NL in OR PRE-OP DIAGNOSIS: Benign phyllodes tumor of left breast TISSUE SUBMITTED: Left breast fibroadenoma/benign phyllodes tumor MICROSCOPIC DESCRIPTION Slides are reviewed. MICROSCOPIC DIAGNOSIS Tumor of left breast, excision: Benign phyllodes tumor, completely excised. Changes of previous biopsy. AM:paola 05/18/18 Signed Denzel Delaney DO 05/18/18 <signature on file> Performed By: #### PBREAST #### [facility] [address] [place], [place], [address] SURGERY VISIT REPORT Observed: 05/10/2018 Status: F Source: [place] 10:24 AM [facility] REPOSIT[facility] [facility] [address] [place] [address] OFFICE VISIT Date of Service: 05/10/18 MR#: [id number] Acct: [id number] Name: TIGIST FRANCO Rep #: [id number] : 1975 Provider: Kathryn Cortez MD Age/Sex: 43/F Location: [facility] Status: Signed Intake Intake Visit Reasons: L Breast bx results and discuss Surgery Chief Complaint: post left breast biopsy Rewards Consultant Required: No Is patient in pain?: No [...] excisional breast biopsy. Kathryn Cortez M.D. Pager: [phone] [facility] [address] [place] [address], [address] [place] [address] Office: [phone] Plan Detail Follow Up will schedule excisional breast bx Coding Level of Care Code Off vis,est,level 3 Diagnoses Benign phyllodes tumor of left breast D24.2 05/10/18 1024 <Electronically signed by Kathryn Cortez MD> Date Kathryn Cortez MD Cosigner Signature: Date (if applicable) CC: SURGERY VISIT REPORT Observed: 04/29/2018 Status: F Source: [place] 9:51 AM [facility] REPOS[facility] [address] [place] [address] OFFICE VISIT Date of Service: 04/28/18 MR#: [id number] Acct: [id number] Name: TIGIST FRANCO Rep #: [id number] : 1975 Provider: Kathryn Cortez MD Age/Sex: 43/F Location: [facility] Status: Signed Intake Vital Signs04/28/18 Body Mass Index (BMI) 20.9 04/28/18 Height 5 ft 3 in 04/28/18 Weight: 118 lb Intake Visit Reasons: Birads 4 L Breast U/S Mammo 04/26 Chief Complaint: left breast lump Rewards Consultant Required: No Is patient in pain?: No [...] Menstrual Ab spontaneous: 2 HPI HPI HPI: TIGIST FRANCO, is a 43 F who presents [...] condition. Alert Brenton Yes Biopsy Breast Biopsy: 89401 [facility] Procedure Time Out Time Out [...] at this time. Kathryn Cortez M.D. Pager: [phone] [facility] [address] [place] [address], [address] [place] [address] Office: [phone] Plan Detail Follow Up We will contact with pathology results Coding Level of Care Code Attention Brenton Diagnoses Breast mass, left N63.20 Additional Codes Biopsy - Breast Biopsy: 76197 [facility] (23980) Comment 06172 04/29/18 0951 <Electronically signed by Kathryn Cortez MD> Date Kathryn Cortez MD Cosigner Signature: Date (if applicable) CC: Kira Sánchez MD BREAST BIOPSY Observed: 04/28/2018 Status: F Source: [place] (CHOOSE SITE) 10:30 AM [facility] RE[facility] Patient: TIGIST FRANCO : 1975 (43/F) Acct Num: [id number] Phys: Diego DOMINGUEZ,[facility] Unit Num: [id number] Loc: [facility] Specimen: [id number] Received: 04/28/18 - 1318 Spec Type: BREAST [...] in one cassette. / AM:paola TC:1 CPT: 39964 HEADER OPERATION: Ultrasound-guided mammotome left breast at [...] on file> Performed By: #### PBRBX #### [facility] [address] [place], [address] DIAG MAMM W/CAD, Observed: 04/26/2018 Status: F Source: [place] BIL[place] 1:51 PM [facility] REPOSITORY [facility] Imaging Services [address] [place] [address] DIAG MAMM W/CAD, BILAT MR#: [id number] Acct: [id number] Name: TIGIST FRANCO Rep #: [id number] : 1975 F 43 From: Ok Dean MD PCP: Care Physician, No Primary Status: REG CLI Study: DIAG MAMM W/CAD, BILAT Date of Exam: 04/26/18 Exam# [id number] Ordering Dr: Kassandra Alfred FINANCIAL SALES REPRESENTATIVE-C MAMMOGRAPHY - BILATERAL DIAGNOSTIC REASON FOR EXAM: [...] Ok Dean MD at 14:56 EST Tel [phone], Service support , CC: CHARLETTE Alfred; No Primary Care Physician Out Patient Therapist: Signed BREAST LIMITED Observed: 04/26/2018 Status: F Source: [place] UNILATERAL 1:51 PM [facility] REPOSITORY [facility] Imaging Services [address] [address] [place] [address] Breast Limited Unilateral MR#: [id number] Acct: [id number] Name: TIGIST FRANCO Rep #: [id number] : 1975 F 43 From: Ok Dean MD PCP: Care Physician, No Primary Status: REG CLI Study: Breast Limited Unilateral Date of Exam: 04/26/18 Exam# [id number] Ordering Dr: Kassandra Alfred FINANCIAL SALES REPRESENTATIVE-C STUDY: ULTRASOUND BREAST - LEFT REASON FOR [...] Ok Dean MD at 15:40 EST Tel [phone], Service support , CC: CHARLETTE Alfrde; No Primary Care Physician Out Patient Therapist: Signed ASSOCIATE OFFICE VISIT Observed: 04/23/2018 Status: F Source: [place] REPORT 10:54 AM [facility] REPOSIT[facility] [address] [place] [address] OFFICE VISIT Date of Service: 04/23/18 MR#: [id number] Acct: [id number] Name: TIGIST FRANCO Rep #: [id number] : 1975 Provider: CHARLETTE Alfred Age/Sex: 43/F Location[place] [facility] Status: Signed Intake Vital Signs04/23/18 Height 5 ft 3 in 04/23/18 Weight: 118 lb 04/23/18 Body Mass Index (BMI) 20.9 04/23/18 Blood Pressure 92/58 L Intake Visit Reasons: LEFT BREAST LUMP Chief Complaint: left breast lump Rewards Consultant Required: No Is patient in pain?: No [...] LANDA Cosigner Signature: Date (if applicable) CC: ASSOCIATE OFFICE VISIT Observed: 10/31/2017 Status: F Source: BEE REPORT 6:36 AM [facility] [address] [place] [address] OFFICE VISIT Date of Service: 10/30/17 MR#: [id number] Acct: [id number] Name: TIGIST FRANCO Rep #: [id number] : 1975 Provider: Kira Sánchez MD Age/Sex: 42/F Location: [facility] Status: Signed Intake Vital Signs10/30/17 Height [...] CC: PROGRESS Observed: 10/30/2017 Status: COMPLETED Source: [place] 9:20 AM [facility] REPOSITORY O ID: [id number] Author: Liliya Mora Service: (none) Author Type: [...] APRN.CNP CNOV Observed: 10/30/2017 Status: COMPLETED Source: [place] 9:00 AM [facility] REPOSITORY Office Visit (UCWSTR) SALVADORTIGIST CALDERON ([id number]) 1975 F Date Time Provider Department 10/30/17 [...] detail warranting prompt ER evaluation. Liliya Mora APRN.SOFTWARE ANALYST Referring Provider: SELF [200] Allergies As of Date: 10/30/2017 Noted Allergy Reaction AUGMENTIN (AMOXICILLIN-POT CLAVUL*01/31/2005 2 - Rash CEFTIN (CEFUROXIME AXETIL) 05/31/2009 Comments: ?Itching possibly CODEINE 01/31/2005 2 - Rash PREDNISONE 06/20/2016 5 - Intolerance Comments: heart racing Date Reviewed: 10/30/2017 Reviewed by: Liliya (Bakery Team Member) Morgan - Fully Assessed Reason for Visit: Hematuria [335] Primary Visit Diagnosis:Vaginal bleeding [N93.9] Other Visit Diagnosis:Gross hematuria [R31.0] Order(s):UA DIP B/O [[id number]] Order #: [id number] Prescriptions as of 10/30/2017 Sig: FLAGYL ORAL [...] SOURCE CODE 05/14/2018 Drug amoxicillin Rash Unknown [place] Allergy/41 trihydrate/Q84671 [facility] 2916166( 2707(RXNORM) [facility]) Repository 05/14/2018 Drug potassium Rash Unknown [place] Allergy/41 clavulanate/F0000 [facility] 5504461( 37928(RXNORM) [facility]) Repository 05/14/2018 Drug codeine/R29926039 Rash Unknown [place] Allergy/41 0(RXNORM) [facility] 2833009([facility]) Repository 06/20/2016 DRUG PREDNISONE INTOLERANCE [address] 8570134( Repository [facility]) 05/31/2009 DRUG CEFUROXIME AXETIL [address] 5334367[facility] 01/31/2005 DRUG/08109 AMOXICILLIN-POT RASH [facility] 1003(SNOME CLAVULANATE [address] D CT) Repository 01/31/2005 DRUG CODEINE RASH [address] 0862297([facility]) ENCOUNTERS ENCOUNTERS ADMIT/DISCHARGE ACCOUNT ADMITTING ENCOUNTER LOCATION SOURCE NUMBER CLASS 05/14/2018/05/14/19 [id number] Ambulatory Bee [place] [facility] ing:SDCRoom: Repository AC18 05/14/2018/05/14/19 [id number] Ambulatory BMSBuilding:B [place] 19 [facility] Repository 05/10/2018/05/10/20 [id number] Ambulatory BMSBuilding:B [place] 18 MS.[facility] Repository 04/28/2018 [id number] Ambulatory [facility] ing:[facility]SPEC Repository 04/28/2018/04/28/20 [id number] Ambulatory BMSBuilding:B [place] 18 MS.[facility] Repository 04/26/2018 [id number] Ambulatory [facility] ing:OPUS Repository 04/23/2018/04/23/20 [id number] Ambulatory BMSBuilding:B [place] 18 MS.[facility] Repository 10/30/2017/10/31/19 [id number] Ambulatory BMSBuilding:B [place] 18 MS.[facility] Repository 10/30/2017/10/31/19 [id number] Ambulatory [address] Repository PAYERS PAYERS ENCOUNTER GUARANTOR PAYER SUBSCRIBER SOURCE 05/14/2018 TIGIST L Primary TIGIST L [place] [id number] Insurance:ANTHEMPolic HENSELDOB: [facility] [address]WE[address] y Number: [id number] [id number] Repository [address]Frj: [phone] Date:1637-59-57LA [phone] () [address] [place] [address] 49057OP: 05/14/2018 Secondary NOT GIVENUNK [place] Insurance:SELF PAY [facility] Number: Effective Repository Date:2018-05-12 05/14/2018 TIGIST L Primary TIGIST L [place] [id number] Insurance:ANTHEMPolic HENSELDOB: [facility] [address] y Number: [id number], [place] [id number] Repository [address]Gqq: [phone] [address] Date:7339-38-90BR [phone] () [address] [place] [address] 55756GX: 05/14/2018 Secondary NOT GIVENUNK [place] Insurance:SELF PAY [facility] Number: Effective Repository Date:2018-05-14 05/10/2018 TIGIST Fountain Primary TIGIST Fountain [place] [id number] Insurance:MEDICAL HENSE[place]OB: [facility] [id number] Number: Repository [address]Nee: [phone] [id number] [phone] (HP) Date:0948-03-79ZE [address] [address]UN: 05/10/2018 Secondary NOT GIVENUNK [place] Insurance:SELF PAY [facility] Number: Effective Repository Date:2018-05-10 04/28/2018 TIGIST Fountain Primary TIGIST Fountain [place] [id number] Insurance:MEDICAL HENSELDOB: [facility] [id number], [place] Number: Repository [address]Scc: [phone] [id number] [phone] (HP) Date:7669-37-30CK [address] [address]ST: 04/28/2018 Secondary NOT GIVENUNK [place] Insurance:SELF PAY [facility] Number: Effective Repository Date:2018-04-28 04/28/2018 TIGIST Fountain Primary TIGIST Fountain [place] [id number] Insurance:MEDICAL HENSELDOB: [facility] [id number], [place] Number: Repository [address]Ztb: [phone] [id number] [phone] (HP) Date:3914-12-87JT [address] [address]AA: 04/28/2018 Secondary NOT GIVENUNK [place] Insurance:SELF PAY [facility] Number: Effective Repository Date:2018-04-28 04/26/2018 TIGIST Fountain Primary TIGIST Fountain [place] [id number] Insurance:MEDICAL HENSELDOB: [facility] [id number], [place] Number: Repository [address]Run: [phone] [id number] [phone] (HP) Date:0194-79-92QO [address] [address]BO: 04/26/2018 Secondary NOT GIVENUNK [place] Insurance:SELF PAY [facility] Number: Effective Repository Date:2018-04-23 04/23/2018 [place] [id number] Insurance:MEDICAL HENSELDOB: [facility] [id number] [place] Number: Repository [address]Bfd: [phone] [id number] [phone] () Date:3055-22-05QA [address] [address]TB: 04/23/2018 Secondary NOT GIVENUNK Bee Insurance:SELF PAY [facility] Number: Effective Repository Date:2018-04-23 10/30/2017 Shawn [place] [id number] Insurance:MEDICAL HENSELDOB: [facility] [id number] Home, [place] Number: Repository [address]Lqp: [phone] [id number] [phone] () Date:7292-92-30DS [address] [address]IR: 10/30/2017 Secondary NOT GIVENUNK [place] Insurance:SELF PAY [facility] Number: Effective Repository Date:2017-10-30
== END ==
PROVIDERS: Referring Provider Surgery; Visit Provider Surgery
DX: R92.8 Other abnormal and inconclusive findings on diagnostic imaging of breast (principal)
CPT/HCPCS: 88305

== ENCOUNTER 2018-05-14 12:24 | Day surgery (SDC) | payer BC, SELFPAY ==
[2018-04-28 09:57] VITALS: BMI 20.9
[2018-05-14] VITALS (7 sets, daily range): BP systolic 98–124; BP diastolic 56–86; PULSE 62–110; RESP 14–18; TEMP 36.4–37.5; O2SAT 96–100; BMI 20.4
--- NOTE | 2018-05-14 14:30 | BREAST_PTH ---
PAT[place]: [place] [facility] [place][id number] AGE/SX: 43/F ROOM: RE05/14/[address]: Dr. 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 Changes of previous biopsy. AM:paola 05/18/18 COMMENT Reference is made to the patient's previous biopsy ([id number]) in which fibroadenoma/benign phyllodes tumor was identified. Case has been reviewed in consultation with Dr. Johnson who concurs with the above diagnosis. IDC:CE MICROSCOPIC DESCRIPTION Slides are reviewed. GROSS DESCRIPTION Received in fixative is one container labeled with the patient's name and designated left breast fibroadenoma. The specimen consists of an irregular fragment of wire-guided santos-yellow fatty tissue with no orientation measuring 3 x 2 x 2 cm. Two black sutures (one long and one short) are present. The specimen is inked, serially sectioned and totally submitted in four cassettes. / AM:paola 05/17/18 TC:1 CPT: 20788
--- NOTE | 2018-05-14 15:19 | PCM.OPRPT ---
Report of Operation Date of Procedure: 05/14/18 Pre-Operative Diagnosis: Left breast benign phyllodes tumor Post-Operative Diagnosis: Same Surgery/Procedure Performed:: Excisional left breast biopsy, needle localization with ultrasound apple packing header: Rosita Joya Type of Anesthesia:: General/Supplemental Anesthesiologist: Gerson Osman Special Medications: Clindamycin 600 IV x1 Specimen's removed: Left lumpectomy Estimated Blood Loss (mL): <10 cc Fluids Replaced: 1600 cc Description of Procedure: The patient was taken to the operating room and placed supine on the operating table. General anesthesia was induced. The left breast was prepped and draped in usual sterile fashion. A timeout was completed verifying correct patient, procedure, site, positioning, special equipment prior to beginning procedure. Ultrasound was used for the guided needle localization with the kopan's needle. A curvilinear incision was planned in such a way as to minimize the amount of dissection to reach the mass. Flaps were raised in the location of the wire confirmed. The wire was delivered into the wound. 2 silk [id number]-jmofg stay suture was placed around the wire and used for traction. Dissection was then taken down circumferentially, taking care to include the entire localization needle and the entire nodule. The specimen and entire localizing wire were removed. The specimen was oriented and sent to radiology with the localization studies. Confirmation was received that the entire target lesion had been resected. The wound was irrigated. Hemostasis was checked. space was closed with [id number]-[id number] 3-0 Vicryl suture. The breast incision was closed with interrupted sutures of 3-0 Vicryl and subcuticular sutures of 4-0 Monocryl. A dressing of fluff gauze and supportive bra placed. The patient tolerated procedure well was taken to the postanesthesia care in stable condition. - Complications none
--- NOTE | 2018-05-14 15:22 | BI_ITS ---
SURGICAL BREAST SPECIMEN RADIOGRAPH CLINICAL: Document presence of tissue clip marker in biopsy specimen. FINDINGS: Specimen shows presence of tissue clip marker. Electronically Signed: Ok Dean MD at 15:49 EST Tel [phone], Service support , BI/Breast Biopsy Specimen
--- NOTE | 2018-05-14 15:24 | OP.PCM_ITS ---
Report of Operation Date of Procedure: 05/14/18 Pre-Operative Diagnosis: Left breast benign phyllodes tumor Post-Operative Diagnosis: Same Surgery/Procedure Performed:: Excisional left breast biopsy, needle localization with ultrasound palm gatherer: Rosita Joya Type of Anesthesia:: General/Supplemental Anesthesiologist: Gerson Osman Special Medications: Clindamycin 600 IV x1 Specimen's removed: Left lumpectomy Estimated Blood Loss (mL): <10 cc Fluids Replaced: 1600 cc Description of Procedure: The patient was taken to the operating room and placed supine on the operating table. General anesthesia was induced. The left breast was prepped and draped in usual sterile fashion. A timeout was completed verifying correct patient, procedure, site, positioning, special equipment prior to beginning procedure. Ultrasound was used for the guided needle localization with the kopan's needle. A curvilinear incision was planned in such a way as to minimize the amount of dissection to reach the mass. Flaps were raised in the location of the wire confirmed. The wire was delivered into the wound. 2 silk ikpvol-zk-aarwe stay suture was placed around the wire and used for traction. Dissection was then taken down circumferentially, taking care to include the entire localization needle and the entire nodule. The specimen and entire localizing wire were removed. The specimen was oriented and sent to radiology with the localization studies. Confirmation was received that the entire target lesion had been resected. The wound was irrigated. Hemostasis was checked. space was closed with [id number]-[id number] 3-0 Vicryl suture. The breast incision was closed with interrupted sutures of 3-0 Vicryl and subcuticular sutures of 4-0 Monocryl. A dressing of fluff gauze and supportive bra placed. The patient tolerated procedure well was taken to the postanesthesia care in stable condition. - Complications none
--- NOTE | 2018-05-14 15:29 | DCINST_ITS ---
Discharge Diet: Light diet - advance as tolerated Discharge Activity: May not drive while taking narcotic pain medications. Lifting Restrictions: no lifting >15 lbs for a few days on the left Call your doctor if your incision/area has: Continuous Slow Oozing, Sudden Increased Bleeding, Increased Pain/ Swelling, Increased Redness, Foul Smelling Discharge, Swelling at the incision site Call your doctor if you observe: Fever of 101 or Higher Remove Dressing in (days):: 2 Allergies/Adverse Reactions: Allergies amoxicillin trihydrate [From Augmentin] Allergy (Verified 05/14/18 12:40) Rash codeine Allergy (Verified 05/14/18 12:40) Rash potassium clavulanate [From Augmentin] Allergy (Verified 05/14/18 12:40) Rash Medications to take at Discharge psyllium husk 0.4 gram capsule 0.4 g PO DAILY 04/23/18 Hydrocodone Bitart/Apap 5-325 [[place] 5MG-325MG] 1 - 2 tablet PO Q6H PRN PRN 4 Days #15 tablet 05/14/18 The following prescriptions were given: Hydrocodone Bitart/Apap 5-325 [[place] 5MG-325MG] 1 - 2 tablet PO Q6H PRN PRN 4 Days #15 tablet PRN Reason: Pain Primary Care Physician: Care Physician,No Primary [Primary Care Provider] - Test Results: Test results from this visit will be discussed in further detail at your follow- up appointment, if applicable. Please Follow Up With: Kathryn Cortez MD - After 5:00/weekends call [phone] with any concerns When: Call for appointment in 2 weeks. Proposed Discharge Date: 05/14/18
[2018-05-14] MEDS: Bupivacaine 0.25% 30 ML Vial (15:30)
[2018-05-14] MEDS: HYDROcodone Bitartrate/Apap 5/325 Tablet PO (17:25)
== END 2018-05-14 18:07 | disposition home or self-care (01) ==
LOC: SDC 12:26 → AC 12:28
PROVIDERS: Referring Provider Surgery; Visit Provider Surgery
PROC: (CPT 19301; principal; 2018-05-14 14:15)
DX: D24.2 Benign neoplasm of left breast (principal); F17.210 Nicotine dependence, cigarettes, uncomplicated
CPT/HCPCS: 00400; 19125; 76098; 88305; 88307; J7120; J2405; J3490; Q9968

== ENCOUNTER → 2019-01-06 | Outpatient (CLI) | payer BC, SELFPAY ==
[2019-01-04 16:02] VITALS: BMI 20.4
--- NOTE | 2019-01-06 13:53 | US_ITS ---
STUDY: ULTRASOUND OF THE FEMALE PELVIS - COMPLETE REASON FOR EXAM: Female, 43 years old. Ovarian cyst. Partial hysterectomy LMP: Unknown. TECHNIQUE: Transabdominal and Transvaginal TECHNICAL QUALITY: Adequate. COMPARISON: None. FINDINGS: Status post hysterectomy The right ovary is visualized. The right ovary measures 4.8 x 2.5 x 2.2 cm. Dominant anechoic right ovarian follicle measuring 2 x 1.8 x 1.5 cm. There is no visualized right adnexal mass or complex lesion. There is normal arterial and normal venous vascularity. The left ovary is visualized. The left ovary measures 2.9 x 1.6 x 1.9 cm. There is no left ovarian cyst or ovarian mass. There is no visualized left adnexal mass or complex lesion. There is normal arterial and normal venous vascularity. Trace pelvic free fluid The pre void volume of the bladder was 162 ml. US/Pelvic (Non ) IMPRESSION: Dominant anechoic right ovarian follicle. Ovaries are otherwise within normal limits. Status post hysterectomy Electronically Signed: Bharath Duffy DO at 16:15 EDT Tel , Service support ,
--- NOTE | 2019-01-06 13:53 | US_ITS ---
STUDY: ULTRASOUND OF THE FEMALE PELVIS - COMPLETE REASON FOR EXAM: Female, 43 years old. Ovarian cyst. Partial hysterectomy LMP: Unknown. TECHNIQUE: Transabdominal and Transvaginal TECHNICAL QUALITY: Adequate. COMPARISON: None. FINDINGS: Status post hysterectomy The right ovary is visualized. The right ovary measures 4.8 x 2.5 x 2.2 cm. Dominant anechoic right ovarian follicle measuring 2 x 1.8 x 1.5 cm. There is no visualized right adnexal mass or complex lesion. There is normal arterial and normal venous vascularity. The left ovary is visualized. The left ovary measures 2.9 x 1.6 x 1.9 cm. There is no left ovarian cyst or ovarian mass. There is no visualized left adnexal mass or complex lesion. There is normal arterial and normal venous vascularity. Trace pelvic free fluid The pre void volume of the bladder was 162 ml. US/Transvaginal Non- IMPRESSION: Dominant anechoic right ovarian follicle. Ovaries are otherwise within normal limits. Status post hysterectomy Electronically Signed: Bharath Duffy DO at 16:15 EDT Tel , Service support ,
== END | disposition home or self-care (01) ==
LOC: US 13:52
PROVIDERS: Referring Provider Obstetrics & Gynecology; Visit Provider Obstetrics & Gynecology
DX: N83.201 Unspecified ovarian cyst, right side (principal); N83.202 Unspecified ovarian cyst, left side
CPT/HCPCS: 76830; 76856; 93976

== ENCOUNTER → 2019-03-08 | Outpatient (CLI) | payer BC, SELFPAY ==
[2019-02-03 13:53] VITALS: BMI 19.1
[2019-03-03 13:29] VITALS: BMI 19.1
--- NOTE | 2019-03-08 09:16 | US_ITS ---
STUDY: ULTRASOUND BREAST - RIGHT REASON FOR EXAM: Female, 43 years old. Palpable right breast lump. TECHNIQUE: Axial and longitudinal images of the RIGHT breast were performed with a high resolution ultrasound transducer. COMPARISON: Comparison is made with prior mammogram dated March 08, 2019. FINDINGS: RIGHT Breast: There are 3 subcentimeters cysts at the 10:00, 4:00 and 3:00 radians. The largest measures 8 mm x 6 mm x 4 mm. US/Breast Limited Unilateral IMPRESSION: Subcentimeters cysts as described. ASSESSMENT CATEGORY: BIRADS Category 2: Benign. A letter regarding these results will be sent to the patient by the facility within 30 days. Electronically Signed: Ok Dean, at 11:16 EDT , Service support ,
--- NOTE | 2019-03-08 09:16 | BI_ITS ---
MAMMOGRAPHY - BILATERAL DIAGNOSTIC REASON FOR EXAM: Female, 43 years old. Right breast lumps at 4:00 and 10:00 radian. PERTINENT HISTORY: Prior right lumpectomy. Aunts with breast cancer. TECHNIQUE: Digital bilateral breast haja (3D mammographic acquisition) in the CC and MLO projections. 2-D mediolateral oblique (MLO) and craniocaudad (CC) views of both breasts were obtained. CAD: Full Field Digital Mammography with Computer Added Detection was performed. COMPARISON: Comparison is made with prior study dated April 26, 2018. FINDINGS: Breast Composition: The breasts are extremely dense, which lowers the sensitivity of mammography. There are no dominant masses or suspicious calcifications. Stable calcifications in the retroareolar region of the left breast. No other significant abnormalities are identified. There has been no significant change since the prior study. BI/DIAG MAMM W/CAD, BILAT IMPRESSION: Stable bilateral diagnostic mammogram. With the patient's history of palpable abnormalities in the right breast, correlation with ultrasound is recommended. ASSESSMENT CATEGORY: BIRADS Category 0: Incomplete. Need additional imaging evaluation. A letter regarding these results will be sent to the patient by the facility within 30 days. Approximately 10% of breast cancers are not detected by mammography. A normal mammogram should not delay biopsy of a clinically suspicious abnormality. Electronically Signed: Ok Dean, at 14:08 EDT , Service support ,
== END | disposition home or self-care (01) ==
LOC: OPBI 09:14
PROVIDERS: Family Provider Internal Medicine; PCP Internal Medicine; Referring Provider Obstetrics & Gynecology; Visit Provider Obstetrics & Gynecology
DX: N63.10 Unspecified lump in the right breast, unspecified quadrant (principal)
CPT/HCPCS: 76642; 77062; 77066; G0279

== ENCOUNTER → 2019-03-25 | Outpatient (CLI) | payer BC, SELFPAY ==
[2019-03-25 14:45] VITALS: BMI 19.1
[2019-03-25 18:15] LABS: Chlamydia Trachomatis by PCR Negative (Negative); Neisserai gonorrhoeae by PCR Negative (Negative); Probe Check PASS; Sample Adequacy Control PASS; Specimen Processing Control PASS
== END | disposition home or self-care (01) ==
LOC: LABSPEC 15:39
PROVIDERS: Family Provider Internal Medicine; PCP Internal Medicine; Referring Provider Nurse Practitioner Women's Health; Visit Provider Nurse Practitioner Women's Health
DX: N89.8 Other specified noninflammatory disorders of vagina (principal); Z11.3 Encounter for screening for infections with a predominantly sexual mode of transmission
CPT/HCPCS: 87070; 87205; 87491; 87591

== ENCOUNTER → 2019-11-10 17:49 | Outpatient (CLI) | payer BC, SELFPAY ==
[2019-11-10 14:09] VITALS: BMI 19.0
== END ==
PROVIDERS: PCP Internal Medicine; Referring Provider Physician Assistant; Visit Provider Physician Assistant
DX: Z20.828 Contact with and (suspected) exposure to other viral communicable diseases (principal)
CPT/HCPCS: 87635; G2023; U0003

== ENCOUNTER → 2020-03-05 10:49 | Outpatient (CLI) | payer BC, SELFPAY ==
[2020-03-05 12:20] LABS: Absolute Lymphocyte Count 1.58 X10^3/uL (0.83-4.51); Absolute Neutrophil Count 5.7 X10^3/uL (2.0-7.7); Basophil# 0.05 X10^3/uL; Basophil% 0.6 % (0-1); Eosinophil# 0.06 X10^3/uL; Eosinophils% 0.8 % (0-5); Hematocrit 45.2 % (37-47); Hemoglobin 14.9 g/dL (12.0-15.0); Lymphocyte # 1.58 X10^3/ul (4.0); Lymphocyte % 19.9 % (19-41); Mean Corpuscular Hgb 29.3 pg (27.0-32.0); Mean Platelet Vol. 9.4 fl (6.2-12.0); Monocyte# 0.52 X10^3/uL; Monocyte% 6.5 % (0-10); NRBC Flagged by Analyzer 0 % (0-5); Neutrophil # 5.71 X10^3/uL (2.7-7.7); Neutrophil % 71.9 % (47-70); Platelet Count 349 K/mm3 (150-450); RBC Distribution Width CV 11.9 % (11.6-14.6); RBC Distribution Width SD 38.5 fl (35.1-43.9); Red Blood Count 5.08 M/mm3 (4.2-5.4); White Blood Count 7.9 K/mm3 (4.4-11.0)
[2020-03-05 12:39] LABS: ALB/GLOB Ratio 1.1 RATIO (0.9-2.4); AST(SGOT) 16 U/L (15-37); Alanine Aminotransfer ALT/SGPT 18 U/L (13-56); Albumin, Serum 3.5 g/dL (3.2-5.0); Alkaline Phosphatase 82 U/L (45-117); Anion Gap 5 (5-15); BUN 13 mg/dL (7-18); BUN/Creat Ratio 13.3 RATIO (10-20); Chloride 108 mmol/L (98-107); Cholesterol 182 mg/dL (200); Creatinine, Serum 0.97 mg/dL (0.55-1.02); EST Glomerular Filtration Rate 65 mL/min (>60); Est Glom Filt Rate - Afr Amer 79 mL/min (>60); Globulin 3.2 g/dL (2.2-4.2); Glucose 63 mg/dL (74-106); High Density Lipoprotein 104 mg/dL; Potassium 4.4 mmol/L (3.5-5.1); Protein, Total 6.7 g/dL (6.4-8.2); Sodium Level 140 mmol/L (136-145); Triglycerides 79 mg/dL; Very Low Density Lipoprotein 16 mg/dL (5-40)
== END ==
LOC: BIMLAB 10:49
PROVIDERS: PCP Internal Medicine; Visit Provider Internal Medicine
DX: Z00.00 Encounter for general adult medical examination without abnormal findings (principal)
CPT/HCPCS: 36415; 80053; 80061; 85025

== ENCOUNTER → 2020-04-11 15:11 | Outpatient (CLI) | payer BC, SELFPAY | PROVIDERS: PCP Internal Medicine; Visit Provider Physician Assistant | DX: Z20.828 Contact with and (suspected) exposure to other viral communicable diseases (principal) | CPT/HCPCS: 87635; U0003 ==

== ENCOUNTER → 2020-06-18 13:44 | Outpatient (CLI) | payer OTHER, SELFPAY | PROVIDERS: PCP Internal Medicine; Visit Provider Internal Medicine | DX: R50.9 Fever, unspecified (principal) | CPT/HCPCS: 87635; U0005; U0003 ==

== ENCOUNTER → 2020-06-25 10:12 | Outpatient (CLI) | payer OTHER, SELFPAY ==
[2020-06-25 09:14] VITALS: BMI 23.0
[2020-06-25 12:11] LABS: Erythrocyte Sedimentation Rate 1 mm/hr (0-30)
[2020-06-25 12:13] LABS: Absolute Lymphocyte Count 1.79 X10^3/uL (0.83-4.51); Basophil# 0.05 X10^3/uL; Basophil% 0.8 % (0-1); Eosinophil# 0.03 X10^3/uL; Eosinophils% 0.5 % (0-5); Hematocrit 47.7 % (37-47); Hemoglobin 15.6 g/dL (12.0-15.0); Lymphocyte # 1.79 X10^3/ul (4.0); Lymphocyte % 28.5 % (19-41); Mean Corp Hgb Conc 32.7 g/dL (32-36); Mean Corpuscular Hgb 29.4 pg (27.0-32.0); Mean Corpuscular Volume 89.8 fL (81-99); Mean Platelet Vol. 9.5 fl (6.2-12.0); Monocyte% 6.4 % (0-10); NRBC Flagged by Analyzer 0 % (0-5); Neutrophil % 63.5 % (47-70); Platelet Count 381 K/mm3 (150-450); RBC Distribution Width CV 11.8 % (11.6-14.6); RBC Distribution Width SD 38.5 fl (35.1-43.9); Red Blood Count 5.31 M/mm3 (4.2-5.4); White Blood Count 6.3 K/mm3 (4.4-11.0)
[2020-06-25 12:21] LABS: SARS-COV-2 TOTAL ABS Reactive (Nonreactive); Vitamin D,25 Hydroxy 30.6 ng/mL
[2020-06-25 12:31] LABS: ALB/GLOB Ratio 1.2 RATIO (0.9-2.4); AST(SGOT) 18 U/L (15-37); Alanine Aminotransfer ALT/SGPT 28 U/L (13-56); Albumin, Serum 3.8 g/dL (3.2-5.0); Alkaline Phosphatase 87 U/L (45-117); Anion Gap 4 (5-15); BUN 12 mg/dL (7-18); BUN/Creat Ratio 14.8 RATIO (10-20); Calcium,Total 9.4 mg/dL (8.5-10.1); Chloride 108 mmol/L (98-107); Creatinine, Serum 0.81 mg/dL (0.55-1.02); EST Glomerular Filtration Rate 81 mL/min (>60); Est Glom Filt Rate - Afr Amer 98 mL/min (>60); Globulin 3.3 g/dL (2.2-4.2); Glucose 71 mg/dL (74-106); Potassium 4.5 mmol/L (3.5-5.1); Protein, Total 7.1 g/dL (6.4-8.2); Sodium Level 141 mmol/L (136-145); Thyroid Stim Hormone (TSH) 0.91 uIU/mL (0.358-3.74)
== END ==
LOC: BIMLAB 10:13
PROVIDERS: PCP Internal Medicine; Referring Provider Internal Medicine; Visit Provider Internal Medicine
DX: R50.9 Fever, unspecified (principal)
CPT/HCPCS: 36415; 80053; 82306; 84443; 85025; 85652; 86141; 86769

== ENCOUNTER → 2020-12-20 14:12 | Outpatient (CLI) | payer OTHER, SELFPAY ==
[2020-06-25 09:14] VITALS: BMI 23.0
[2020-12-22 08:19] LABS: HSV 2 IgG < 0.91 index (0.00-0.90)
== END ==
PROVIDERS: PCP Internal Medicine; Referring Provider Nurse Practitioner Women's Health; Visit Provider Nurse Practitioner Women's Health
DX: Z20.2 Contact with and (suspected) exposure to infections with a predominantly sexual mode of transmission (principal)
CPT/HCPCS: 36415; 86695; 86696

== ENCOUNTER → 2021-01-23 15:40 | Outpatient (CLI) | payer OTHER, SELFPAY ==
[2021-01-23 16:40] LABS: Hematocrit 45.5 % (37-47); Mean Corpuscular Hgb 29.3 pg (27.0-32.0); Mean Corpuscular Volume 88.9 fL (81-99); Mean Platelet Vol. 9.6 fl (6.2-12.0); Platelet Count 318 K/mm3 (150-450); RBC Distribution Width CV 11.9 % (11.6-14.6); RBC Distribution Width SD 38.2 fl (35.1-43.9); Red Blood Count 5.12 M/mm3 (4.2-5.4); White Blood Count 8.6 K/mm3 (4.4-11.0)
[2021-01-23 17:15] LABS: AST(SGOT) 14 U/L (15-37); Alanine Aminotransfer ALT/SGPT 24 U/L (13-56); Albumin, Serum 3.6 g/dL (3.2-5.0); Alkaline Phosphatase 80 U/L (45-117); Anion Gap 3 (5-15); BUN 11 mg/dL (7-18); BUN/Creat Ratio 14.9 RATIO (10-20); Calcium,Total 8.7 mg/dL (8.5-10.1); Chloride 109 mmol/L (98-107); Cholesterol 154 mg/dL (200); Creatinine, Serum 0.74 mg/dL (0.55-1.02); EST Glomerular Filtration Rate 90 mL/min (>60); Est Glom Filt Rate - Afr Amer 109 mL/min (>60); Globulin 3.5 g/dL (2.2-4.2); Glucose 82 mg/dL (74-106); High Density Lipoprotein 80 mg/dL; Potassium 4.2 mmol/L (3.5-5.1); Protein, Total 7.1 g/dL (6.4-8.2); Sodium Level 139 mmol/L (136-145); Thyroid Stim Hormone (TSH) 0.63 uIU/mL (0.358-3.74); Triglycerides 47 mg/dL; Very Low Density Lipoprotein 9 mg/dL (5-40)
== END ==
LOC: BIMLAB 15:41
PROVIDERS: PCP Internal Medicine; Referring Provider Nurse Practitioner Family; Visit Provider Nurse Practitioner Family
DX: Z00.00 Encounter for general adult medical examination without abnormal findings (principal)
CPT/HCPCS: 36415; 80053; 80061; 84443; 85027

== ENCOUNTER → 2021-02-13 15:13 | Outpatient (CLI) | payer OTHER, SELFPAY ==
--- NOTE | 2021-02-13 15:15 | RAD_ITS ---
STUDY: X-RAY - LUMBAR SPINE REASON FOR EXAM: Female, 45 years old. Lumbar radiculopathy. TECHNIQUE: 3 view(s) of the lumbar spine were obtained. COMPARISON: CT of the abdomen and pelvis, 05/18/2013. FINDINGS: Normal lumbar lordosis. There is no substantial scoliosis. There is a normal alignment of the vertebrae. Normal vertebral bodies and endplates. Normal disc space heights. There is no evidence of acute fracture or loss of vertebral axial height. The soft tissue structures are unremarkable. RAD/Lumbar Spine 2 or 3 Views IMPRESSION: No acute abnormality of the lumbar spine are major interval change. Electronically Signed: Roberto Velazquez DO at 16:07 EDT Tel [phone], Service support ,
== END ==
PROVIDERS: PCP Internal Medicine; Visit Provider Nurse Practitioner Family
DX: M54.16 Radiculopathy, lumbar region (principal)
CPT/HCPCS: 72100

== ENCOUNTER → 2021-02-13 15:39 | Outpatient (CLI) | payer OTHER, SELFPAY ==
--- NOTE | 2021-02-13 15:42 | BI_ITS ---
MAMMOGRAPHY - BILATERAL SCREENING 3-D TOMOSYNTHESIS REASON FOR EXAM: Female, 45 years old. screening PERTINENT HISTORY: No significant family history. TECHNIQUE: 2-D mammograms and 3-D Tomosynthesis of the breast (s) were performed. CAD was performed. COMPARISON: 03/08/2019 FINDINGS: The breast composition is heterogeneously dense that can obscure small breast masses. Scattered benign calcifications are seen. No dominant mass. No suspicious calcifications right breast. New group of punctate calcifications retroareolar left breast and magnification views recommended for further evaluation.. No architectural distortion is identified. There is no skin thickening or retraction. There has been no significant change since the prior study. BI/SCRN MAMM (CAD)W/NAGA BILAT IMPRESSION: New grouped punctate calcifications in the retroareolar left breast and magnification views recommended for further evaluation. ASSESSMENT CATEGORY: BIRADS Category 0: Incomplete. Need additional imaging evaluation as above. A letter regarding these results will be sent to the patient by the facility within 30 days. FOLLOW UP RECOMMENDATION: Additional imaging recommended as above. (E) Approximately 10% of breast cancers are not detected by mammography. A normal mammogram should not delay biopsy of a clinically suspicious abnormality. Electronically Signed: Hilario Hanna MD at 17:26 EDT Tel , Service support ,
== END ==
PROVIDERS: PCP Internal Medicine; Referring Provider Nurse Practitioner Family; Visit Provider Nurse Practitioner Family
DX: Z12.31 Encounter for screening mammogram for malignant neoplasm of breast (principal)
CPT/HCPCS: 77063; 77067

== ENCOUNTER → 2021-02-21 14:18 | Outpatient (CLI) | payer OTHER, SELFPAY ==
--- NOTE | 2021-02-21 14:20 | BI_ITS ---
MAMMOGRAPHY - UNILATERAL DIAGNOSTIC: LEFT BREAST REASON FOR EXAM: Female, 45 years old. Abnormal screening mammogram. PERTINENT HISTORY: Non-contributory. TECHNIQUE: Magnification spot views of the left breast were obtained in the mediolateral and craniocaudad projections. CAD: Full Field Digital Mammography with Computer Added Detection was performed. COMPARISON: Comparison is made with prior examination 02/13/2021. FINDINGS: Breast Composition: The breasts are heterogeneously dense, which may obscure small masses. Persistence of the microcalcifications in the retroareolar region of the left breast. Biopsy is recommended. No other significant abnormalities are identified. BI/DIAG MAMM W/CAD, UNILAT IMPRESSION: Cluster of microcalcification in the retroareolar region of the left breast as described. Biopsy is recommended. ASSESSMENT CATEGORY: BIRADS Category 4: Suspicious - Biopsy Should Be Considered. A letter regarding these results will be sent to the patient by the facility within 30 days. Approximately 10% of breast cancers are not detected by mammography. A normal mammogram should not delay biopsy of a clinically suspicious abnormality. Electronically Signed: Ok Dean MD at 15:19 EDT , Service support ,
--- NOTE | 2021-02-21 15:17 | US_ITS ---
STUDY: ULTRASOUND BREAST - LEFT REASON FOR EXAM: Female, 45 years old. Abnormal screening mammogram. TECHNIQUE: Axial and longitudinal images of the LEFT breast were performed with a high resolution ultrasound transducer. # OF IMAGES: 32 COMPARISON: Comparison is made with prior mammogram done earlier in the day. FINDINGS: LEFT Breast: There is evidence of a 1.8 cm x 2 cm x 1.2 cm cyst in the retroareolar region of the breast. Calcifications are seen along the dependent portion. This is suggestive of milk of calcium deposits. Aspiration is recommended. Incidental note is made of a retroareolar ductal dilatation. US/Breast Limited Unilateral IMPRESSION: 1.8 cm x 2 cm x 1.2 cm cyst in the retroareolar region of the breast with calcifications along its dependent portion suggestive of milk of calcium. Aspiration is recommended. ASSESSMENT CATEGORY: BIRADS Category 4: Suspicious - Biopsy Should Be Considered. A letter regarding these results will be sent to the patient by the facility within 30 days. Electronically Signed: Ok Dean MD at 15:56 EDT , Service support ,
== END ==
PROVIDERS: PCP Internal Medicine; Referring Provider Nurse Practitioner Family; Visit Provider Nurse Practitioner Family
DX: R92.8 Other abnormal and inconclusive findings on diagnostic imaging of breast (principal)
CPT/HCPCS: 76642; 77065

== ENCOUNTER → 2021-04-19 16:06 | Outpatient (CLI) | payer OTHER, SELFPAY ==
--- NOTE | 2021-04-19 16:08 | EKG12_ITS ---
Test Reason : PRE OP Blood Pressure : / mmHG Vent. Rate : 063 BPM Atrial Rate : 063 BPM P-R Int : 146 ms QRS Dur : 070 ms QT Int : 408 ms P-R-T Axes : 079 017 051 degrees QTc Int : 417 ms Normal sinus rhythm with sinus arrhythmia Normal ECG Confirmed by KENNY DOMINGUEZ, RICKY ([id number]), offline editor GUERRERO RUIZ ([id number]) on 04/22/2021 9:39:58 AM Referred By: Kathleen Dowell Confirmed By:RICKY COX MD
== END ==
PROVIDERS: PCP Internal Medicine; Referring Provider Physician Assistant; Visit Provider Physician Assistant
DX: R00.2 Palpitations (principal)
CPT/HCPCS: 93005

== ENCOUNTER 2021-06-12 14:42 | Outpatient (CLI) | payer OTHER, SELFPAY ==
[2021-06-12 16:18] LABS: Anion Gap 8 (5-15); BUN 11 mg/dL (7-18); BUN/Creat Ratio 13.2 RATIO (10-20); Calcium,Total 8.7 mg/dL (8.5-10.1); Chloride 107 mmol/L (98-107); Creatinine, Serum 0.83 mg/dL (0.55-1.02); EST Glomerular Filtration Rate 78 mL/min (>60); Est Glom Filt Rate - Afr Amer 94 mL/min (>60); Glucose 89 mg/dL (74-106); Magnesium 2.5 mg/dL (1.6-2.6); Potassium 3.6 mmol/L (3.5-5.1); Sodium Level 139 mmol/L (136-145); Thyroid Stim Hormone (TSH) 0.56 uIU/mL (0.358-3.74)
== END 2021-06-12 23:59 | disposition short-term general hospital (02) ==
LOC: BIMLAB 14:42
PROVIDERS: PCP Internal Medicine; Referring Provider Nurse Practitioner Family; Visit Provider Nurse Practitioner Family
DX: R00.2 Palpitations (principal)
CPT/HCPCS: 36415; 80048; 83735; 84443

== ENCOUNTER 2021-06-20 10:51 | Outpatient (CLI) | payer OTHER, SELFPAY | END 2021-06-20 23:59 | disposition home or self-care (01) | LOC: PSN 10:53 | PROVIDERS: PCP Internal Medicine; Referring Provider Nurse Practitioner Family; Visit Provider Nurse Practitioner Family | DX: R00.2 Palpitations (principal) | CPT/HCPCS: 93225; 93226 ==

== ENCOUNTER 2021-08-29 09:15 | Outpatient (CLI) | payer OTHER, SELFPAY ==
--- NOTE | 2021-08-29 09:18 | US_ITS ---
STUDY: ULTRASOUND BREAST - LEFT REASON FOR EXAM: Female, 46 years old. Short interval follow-up TECHNIQUE: Axial and longitudinal images of the LEFT breast were performed with a high resolution ultrasound transducer. # OF IMAGES: 11 COMPARISON: 02/21/2021 FINDINGS: LEFT Breast: Heterogeneous background echotexture. There is some dense breast parenchyma with some dilated ducts in the retroareolar left breast but no evidence of the previously described cyst which was aspirated.: US/Breast Limited Unilateral IMPRESSION: Interval resolution of cyst in the retroareolar left breast after aspiration. ASSESSMENT CATEGORY: BIRADS Category 1: Negative. A letter regarding these results will be sent to the patient by the facility within 30 days. Electronically Signed: Hilario Hanna MD at 11:04 EDT ,
--- NOTE | 2021-08-29 09:18 | BI_ITS ---
MAMMOGRAPHY - UNILATERAL DIAGNOSTIC: LEFT BREAST REASON FOR EXAM: Female, 46 years old. abnormal breast imaging PERTINENT HISTORY: Non-contributory. TECHNIQUE: Digital examination. Mediolateral oblique (MLO) and craniocaudad (CC) views of the breast were obtained. CAD: CAD was performed on this study. COMPARISON: 02/13/2021 FINDINGS: Breast Composition: The breasts are heterogeneously dense, which may obscure small masses. There are no dominant masses or suspicious calcifications. No change in the benign punctate calcifications in the retroareolar left breast. BI/DIAG MAMM W/CAD, UNILAT IMPRESSION: Stable unilateral diagnostic mammogram. All ultrasound of the previously located cyst will be obtained. ASSESSMENT CATEGORY: BIRADS Category 0: Incomplete. Need additional imaging evaluation. A letter regarding these results will be sent to the patient by the facility within 30 days. FOLLOW-UP RECOMMENDATION: Ultrasound recommended. (I) Approximately 10% of breast cancers are not detected by mammography. A normal mammogram should not delay biopsy of a clinically suspicious abnormality. Electronically Signed: Hilario Hanna MD at 10:00 EDT ,
== END 2021-08-29 23:59 | disposition home or self-care (01) ==
LOC: OPBI 09:16
PROVIDERS: PCP Internal Medicine; Referring Provider Surgery; Visit Provider Surgery
DX: R92.1 Mammographic calcification found on diagnostic imaging of breast (principal); N60.09 Solitary cyst of unspecified breast
CPT/HCPCS: 76642; 77061; 77065; G0279

== ENCOUNTER → 2021-09-19 | Outpatient (CLI) | payer OTHER, SELFPAY ==
--- NOTE | 2021-09-19 08:10 | ECHOD_ITS ---
Reason For Study: ARRHYTHMIA Procedure This was a 2D Doppler, Color Flow transthoracic echocardiogram. Exam performed in department. Left Ventricle Normal LV size. Left ventricular systolic function is normal. The estimated ejection fraction is 60 %. No regional wall motion abnormalities noted. Right Ventricle Normal RV size. Normal systolic function. Atria Normal left atrium. Normal right atrium. Mitral Valve Normal mitral valve. Tricuspid Valve Normal tricuspid valve. Mild (1+) tricuspid valve insufficiency. Pulmonary artery systolic pressure is 24 mmHg. Aortic Valve Normal aortic valve. Pulmonic Valve Normal pulmonic valve. Great Vessels Normal aortic root. The pulmonary artery is normal size. Normal inferior vena cava. Pericardium/Pleural No pericardial effusion. MMode/2D Measurements & Calculations LVIDd: 4.3 cm IVSd: 0.65 cm Ao root diam: 2.8 cm LVIDs: 2.8 cm LVPWd: 0.75 cm RVDd: 2.8 cm FS: 36.3 % LAV(MOD-bp): 27.3 ml LVAd ap4: 23.2 cm2 SV(MOD-sp4): 40.1 ml LAV(MOD-bp) Indexed: 17.7 ml/m2 LVLd ap4: 6.9 cm LAV(MOD-sp2): 24.1 ml EDV(MOD-sp4): 65.7 ml LAV(MOD-sp4): 26.6 ml EDV(sp4-el): 66.0 ml LVAs ap4: 12.9 cm2 LVLs ap4: 5.5 cm ESV(MOD-sp4): 25.6 ml ESV(sp4-el): 25.6 ml EF(MOD-sp4): 61.0 % EF(sp4-el): 61.3 % SV(sp4-el): 40.4 ml LA A4 area: 13.0 cm2 LA dimension(2D): 2.5 cm RA A4 area: 11.4 cm2 Time Measurements MV dec time: 0.15 sec Doppler Measurements & Calculations MV E max jeff: 83.1 cm/sec Lat Peak E' Jeff: 19.7 cm/sec Med Peak E' Jeff: 17.2 cm/sec MV A max jeff: 50.3 cm/sec E/E' lat: 4.2 E/E' med: 4.8 MV E/A: 1.7 Ao V2 max: 128.1 cm/sec LV V1 max: 100.5 cm/sec PA V2 max: 104.6 cm/sec Ao max P.6 mmHg LV V1 max P.0 mmHg PI end-d jeff: 87.2 cm/sec TR max jeff: 224.6 cm/sec TR max P.2 mmHg ECHO/Echo Complete Interpretation Summary Normal LV size. Left ventricular systolic function is normal. The estimated ejection fraction is 60 %. Pulmonary artery systolic pressure is 24 mmHg. Ordering Physician: Conor Ny Referring Physician: BROOKE OVIEDO Performed By: Elise Moura RDCS
[2021-09-19 11:27] LABS: Erythrocyte Sedimentation Rate < 1 mm/hr (0-30)
[2021-09-19 11:30] LABS: Absolute Lymphocyte Count 1.94 X10^3/uL (0.83-4.51); Absolute Neutrophil Count 5.4 X10^3/uL (2.0-7.7); Basophil# 0.05 X10^3/uL; Basophil% 0.6 % (0-1); Eosinophil# 0.07 X10^3/uL; Eosinophils% 0.9 % (0-5); Hematocrit 44.8 % (37-47); Hemoglobin 14.5 g/dL (12.0-15.0); Lymphocyte # 1.94 X10^3/ul (0.83-4.51); Lymphocyte % 24.4 % (19-41); Mean Corp Hgb Conc 32.4 g/dL (32-36); Mean Corpuscular Hgb 28.9 pg (27.0-32.0); Mean Corpuscular Volume 89.4 fL (81-99); Monocyte# 0.49 X10^3/uL; Monocyte% 6.2 % (0-10); NRBC Flagged by Analyzer 0 % (0-5); Neutrophil # 5.37 X10^3/uL (2.7-7.7); Neutrophil % 67.6 % (47-70); Platelet Count 311 K/mm3 (150-450); RBC Distribution Width CV 11.9 % (11.6-14.6); RBC Distribution Width SD 38.1 fl (35.1-43.9); Red Blood Count 5.01 M/mm3 (4.2-5.4); White Blood Count 7.9 K/mm3 (4.4-11.0)
[2021-09-19 11:57] LABS: BUN 11 mg/dL (7-18); Glucose 89 mg/dL (74-106)
[2021-09-19 11:58] LABS: ALB/GLOB Ratio 1.2 RATIO (0.9-2.4); AST(SGOT) 17 U/L (15-37); Alanine Aminotransfer ALT/SGPT 19 U/L (13-56); Albumin, Serum 3.7 g/dL (3.2-5.0); Alkaline Phosphatase 82 U/L (45-117); Anion Gap 4 (5-15); BUN/Creat Ratio 15.6 RATIO (10-20); CRP < 2.90 mg/L (0.0-3.0); Chloride 106 mmol/L (98-107); EST Glomerular Filtration Rate 95 mL/min (>60); Est Glom Filt Rate - Afr Amer 114 mL/min (>60); Globulin 3.2 g/dL (2.2-4.2); LDH 189 U/L (84-246); Potassium 4.2 mmol/L (3.5-5.1); Protein, Total 6.9 g/dL (6.4-8.2); Sodium Level 137 mmol/L (136-145); Thyroid Stim Hormone (TSH) 0.65 uIU/mL (0.358-3.74)
[2021-09-20 14:10] LABS: Anti-Centromere B Ab <0.2 AI (0.0-0.9); Anti-Chromatin <0.2 AI (0.0-0.9); Anti-Jo <0.2 AI (0.0-0.9); Anti-Scleroderma-70 AB <0.2 AI (0.0-0.9); RNP Ab 0.2 AI (0.0-0.9); SJOGREN'S Anti-SS-A test < 0.2 AI (0.0-0.9); SJOGREN'S Anti-SS-B test < 0.2 AI (0.0-0.9); Smith Ab <0.2 AI (0.0-0.9)
[2021-09-20 15:09] LABS: Endomysial Antibody IgA Negative (Negative)
[2021-09-20 18:58] LABS: Anti-dsDNA Ab <1 IU/mL (0-9)
[2021-09-20 19:01] LABS: Immunoglobulin A 161 mg/dL (87-352); t-Transglutaminase IgA <2 U/mL (0-3)
[2021-09-27 16:09] LABS: Cytoplasmic Ab (C-ANCA) <1:20 titer (Neg:<1:20); HEPATITIS B SURFACE AG Negative (Negative); Hep C Antibodies <0.1 s/co ratio (0.0-0.9); Hepatitis A IgM Antibody Negative (Negative); Hepatitis B Core AB IgM Negative (Negative); Immunoglobulin A 153 mg/dL (87-352); Immunoglobulin E 7 IU/mL (6-495); Immunoglobulin G 821 mg/dL (586-1602); Immunoglobulin M 112 mg/dL (26-217)
[2021-09-27 16:37] LABS: Gastrin, Serum 35 pg/mL (0-115); Perinuclear Ab (P-ANCA) <1:20 titer (Neg:<1:20)
== END | disposition home or self-care (01) ==
PROVIDERS: PCP Internal Medicine; Referring Provider Internal Medicine Cardiovascular Disease; Visit Provider Nurse Practitioner Adult Health
DX: K52.9 Noninfective gastroenteritis and colitis, unspecified (principal); R10.32 Left lower quadrant pain; R00.2 Palpitations
CPT/HCPCS: 36415; 80053; 80074; 82784; 82785; 82941; 83516; 83615; 84443; 85025; 85652; 86140; 86225; 86235; 86255; 86256; 93306

== ENCOUNTER → 2021-10-03 | Outpatient (CLI) | payer OTHER, SELFPAY ==
--- NOTE | 2021-10-03 12:35 | CT_ITS ---
STUDY: CT Abdomen And Pelvis W/ Contrast Injection 10/03/2021 4:14 PM REASON FOR EXAM: Female, 46 years old. ABDOMINAL PAIN LLQ pain, diarrhea, hx diverticulitis -- oral and IV TECHNIQUE: Transaxial images were obtained with oral contrast, and Oral and IV Readi-CAT and amp; 100mL Isovue-300 intravenous contrast. Individualized dose optimization techniques were used for this CT. COMPARISON: 05.18.13. FINDINGS: The visualized lung bases are unremarkable. The visualized portions of the heart are within normal limits. Two new 7 mm hypodense liver lesions. These are around 45 HU. ACR White Paper guidelines (Pamplin, et al. JACR 2017; 14(11):1655-3701.) suggest the following. For patients with low risk of malignancy, no further follow-up is necessary. For patients with high risk of malignancy (known malignancy with a propensity to metastasize to the liver, cirrhosis, and/or other hepatic risk factors), recommend follow-up abdominal CT or MR in 6 months. Unremarkable gallbladder and extrahepatic biliary system. Unremarkable spleen. Unremarkable pancreas. Unremarkable bilateral adrenal glands. No acute findings of the right kidney. No acute findings of the left kidney. Unremarkable visualized stomach. Unremarkable small intestine. There are multiple colonic diverticula consistent with diverticulosis. The appendix is visualized and appears unremarkable. There are no acute findings of the abdominal aorta. Unremarkable inferior vena cava. Subcentimeter mesenteric lymph nodes. Unremarkable urinary bladder. There is absence of the uterus consistent with a prior hysterectomy. Stable ovarian cyst. There is an umbilical hernia containing fat. Unremarkable osseous structures. CT/Abdomen/Pelvis WITH Contrast IMPRESSION: (NOT LISTED IN ORDER OF SIGNIFICANCE) Two new 7 mm hypodense liver lesions. These are around 45 HU. ACR White Paper guidelines (Pamplin, et al. JACR 2017; 14(11):2295-0360.) suggest the following. For patients with low risk of malignancy, no further follow-up is necessary. For patients with high risk of malignancy (known malignancy with a propensity to metastasize to the liver, cirrhosis, and/or other hepatic risk factors), recommend follow-up abdominal CT or MR in 6 months. There are multiple colonic diverticula consistent with diverticulosis. Other findings as above. Electronically Signed: Louis Miranda MD at 16:19 EDT Reading Location ID and State: [facility] / [place] , Service support ,
[2021-10-07 16:47] LABS: Calprotectin, Stool <16 ug/g (0-120)
== END | disposition home or self-care (01) ==
LOC: CT 12:33
PROVIDERS: PCP Internal Medicine; Referring Provider Nurse Practitioner Adult Health; Visit Provider Nurse Practitioner Adult Health
DX: K52.9 Noninfective gastroenteritis and colitis, unspecified (principal); R10.32 Left lower quadrant pain; K57.90 Diverticulosis of intestine, part unspecified, without perforation or abscess without bleeding; Z87.19 Personal history of other diseases of the digestive system
CPT/HCPCS: 74177; 83630; 83993; 87177; 87209; 87329; 87493; 87506; Q9967

== ENCOUNTER → 2022-03-19 | Outpatient (CLI) | payer OTHER, SELFPAY ==
--- NOTE | 2022-03-19 09:06 | BI_ITS ---
MAMMOGRAPHY - BILATERAL SCREENING REASON FOR EXAM: Female, 46 years old. Routine annual screening examination. PERTINENT HISTORY: Aunts with breast cancer. TECHNIQUE: Digital bilateral breast naga (3D mammographic acquisition) in the CC and MLO projections. 2-D mediolateral oblique (MLO) and craniocaudad (CC) views of both breasts were obtained. CAD: Full Field Digital Mammography with Computer Added Detection was performed. COMPARISON: Comparison is made with prior study dated 02/13/2021 and 02/21/2021. FINDINGS: Breast Composition: The breasts are extremely dense, which lowers the sensitivity of mammography. There are no dominant masses or suspicious calcifications. Stable scattered retroareolar calcifications. No other significant abnormalities are identified. There has been no significant change since the prior study. BI/SCRN MAMM (CAD)W/NAGA BILAT IMPRESSION: Stable bilateral screening mammogram. Yearly follow-up mammogram recommended. (A) ASSESSMENT CATEGORY: BIRADS Category 2: Benign. A letter regarding these results will be sent to the patient by the facility within 30 days. Approximately 10% of breast cancers are not detected by mammography. A normal mammogram should not delay biopsy of a clinically suspicious abnormality. [id number] Electronically Signed: Ok Dean MD at 10:16 EST ,
== END | disposition home or self-care (01) ==
LOC: OPBI 09:05
PROVIDERS: PCP Internal Medicine; Visit Provider Nurse Practitioner Women's Health
DX: Z12.31 Encounter for screening mammogram for malignant neoplasm of breast (principal)
CPT/HCPCS: 77063; 77067

== ENCOUNTER 2022-12-09 13:51 | Emergency (ER) | payer OTHER, SELFPAY ==
[2022-12-09 13:51] VITALS: BP 126/88; PULSE 82; RESP 18; TEMP 36.6; O2SAT 100; BMI 21.9
--- NOTE | 2022-12-09 14:36 | ED.RN ---
PT [id number]
== END 2022-12-09 14:33 | disposition left against medical advice (07) ==
PROVIDERS: PCP Internal Medicine
DX: R10.9 Unspecified abdominal pain (principal)

== ENCOUNTER 2022-12-11 10:08 | Emergency (ER) | payer SELFPAY ==
[2022-12-11 10:09] VITALS: BP 128/78; PULSE 76; RESP 16; TEMP 36.3; O2SAT 100; BMI 22.1
[2022-12-11 10:10] VITALS: BP 128/78; PULSE 71; RESP 18; TEMP 36.3; O2SAT 99
--- NOTE | 2022-12-11 10:45 | CT_ITS ---
STUDY: CT ABDOMEN AND PELVIS WITH CONTRAST REASON FOR EXAM: Female, 47 years old. Lower abd pain, hx of diverticulitis RADIATION DOSAGE (If Supplied By Facility): CTDIvol = ( 11.64 ) mGy, DLP = ( 458.34 ) mGycm TECHNIQUE: Transaxial images were obtained from the dome of the diaphragm to the symphysis pubis without oral contrast. IV 100mL Isovue-370 was administered. Sagittal and coronal images were reconstructed. Individualized dose optimization techniques were used for this CT. COMPARISON: Comparison is made with prior study October 03, 2021. FINDINGS: The visualized lung bases are unremarkable. The visualized portions of the heart are within normal limits. Stable small cysts in the superior aspect of the right lobe of the liver. The patient is status post cholecystectomy. Normal spleen. Normal pancreas. Normal bilateral adrenal glands. Normal right kidney. Normal left kidney. Normal visualized stomach. Normal small intestine. There is diverticulosis, with thickening of the colon wall, and pericolonic inflammation changes consistent with acute diverticulitis. Moderate amount of fecal material is seen throughout the colon. Inflammatory changes are seen in the left lower quadrant and pelvis. The appendix is visualized and appears normal. Normal abdominal aorta. Normal inferior vena cava. Normal retroperitoneum. Normal urinary bladder. Normal abdominal wall. Normal osseous structures. CT/Abdomen/Pelvis W IV Cont ONLY IMPRESSION: Stable hepatic cysts. Changes in keeping with noncomplicated acute sigmoid diverticulitis with inflammatory changes in the pelvis. Small left ovarian follicle. Electronically Signed: Ok Dean MD at 11:52 EDT ,
--- NOTE | 2022-12-11 10:48 | EDS_ITS ---
HPI HPI - GI History of Present Illness Chief Complaint: Abd Pain Informant: patient Narrative Narrative: Patient is a 47-year-old female with history of anxiety, diverticulitis, and IBS presenting with worsening lower abdominal pain. Patient states she has had the symptoms for the past 5 days. 2 days ago she actually had checked into the ER but while she was waiting to be roomed her GI doctor called her in Cipro and Flagyl so she decided to not be seen. Patient has been taking the medications but feels like her symptoms are significantly worsening today. States has been really bloated. She is increased pain in her lower abdomen diffusely as well as slightly up to her right mid abdomen. She also notes that she is been having some difficulty urinating as well as dysuria. She states her symptoms never really lasted this long. She does report a low-grade fever of 99 to 100 ?F. She states she continues to have bowel movements did have a bowel movement this morning but is passing less gas. Does have a history of multiple abdominal surgeries including cholecystectomy, tubal ligation, reversal tubal ligation and hysterectomy. Has had some nausea and did throw up her Flagyl last night because she the taste was so bad. Otherwise has been taking her antibiotics as prescribed. Does follow with Dr. Rust. [facility] Medical History Abnormal abdominal CT scan Abnormal mammogram of left breast Benign breast cyst in female Benign phyllodes tumor of left breast Breast calcification, left Chronic diarrhea Diverticulitis Diverticulosis Encounter for preventative adult health care examination Epigastric abdominal tenderness Generalized anxiety disorder with panic attacks Heart palpitations Hx of diverticulitis of colon IBS (irritable bowel syndrome) Left breast lump LLQ pain Lumbar radiculopathy Lump of right breast Home Medications buspirone 10 mg tablet 10 mg PO BID #180 tabs 11/07/21 [Rx Last Taken Unknown] cefdinir 250 mg/5 mL oral suspension 300 mg (6 mL) PO BID 5 days #60 mL 12/11/22 [Rx Last Taken Unknown] ciprofloxacin HCl 500 mg tablet 500 mg PO BID 12/11/22 [History Last Taken Unknown] metronidazole 500 mg tablet 500 mg PO BID 12/11/22 [History Last Taken Unknown] metronidazole 500 mg tablet 500 mg PO TID #5 tabs 12/11/22 [Rx Last Taken Unknown] ondansetron 4 mg disintegrating tablet 4 mg PO Q8H PRN PRN Nausea #10 tabs 12/11/22 [Rx Last Taken Unknown] oxycodone-acetaminophen 5 mg-325 mg tablet (Percocet) 1 tab PO Q6H PRN pain 3 days #12 tabs 12/11/22 [Rx Last Taken Unknown] Allergy/AdvReac Type Severity Reaction Status Date / Time amoxicillin trihydrate Allergy Rash Verified 12/11/22 10:09 [From Augmentin] codeine Allergy Rash Verified 12/11/22 10:09 potassium clavulanate Allergy Rash Verified 12/11/22 10:09 [From Augmentin] Family History Mother Hypertension Grandfather Colon cancer Grandmother Colon cancer Aunt Breast cancer Aunt Breast cancer Surgical History History of bladder surgery History of breast lump/mass excision History of colonoscopy History of left breast biopsy (~04/2018) History of open reduction and internal fixation (ORIF) procedure History of reversal of tubal ligation History of tonsillectomy and adenoidectomy Hx of cholecystectomy Hx of cone biopsy of cervix Hx of hysterectomy Tubal occlusion Social History Smoking Status: Current every day smoker tobacco type: cigarettes second hand exposure: Yes alcohol intake: current alcohol intake frequency: holidays/special occasions only substance use type: does not use caffeine: Yes what type of physical activity do you participate in: none seatbelt use: always do you feel safe at home: Yes additional social history: Single-Works at [employer] ED Constitutional Constitutional ED: Reports fever(s); Denies chills ENT ENT ED: Denies sore throat Cardiovascular Cardiovascular: Denies chest pain Respiratory/Chest Respiratory/Chest: Denies cough Gastrointestinal Gastrointestinal: Reports abdominal pain, nausea and vomiting; Denies constipation or diarrhea Genitourinary Genitourinary ED: Reports dysuria and other Details: Urinary hesitancy ; Denies hematuria Musculoskeletal Musculoskeletal: Reports back pain; Denies arthralgias or myalgias Integumentary Denies rash Neurologic Neurologic: Denies headache(s) or weakness Psychiatric Psychiatric: Denies anxiety EXAM Physical Exam Const Vital Signs: 12/11/22 10:09 12/11/22 10:10 12/11/22 12:57 Temperature 97.3 F L 97.3 F L 97.7 F L Temperature Source Temporal Temporal Oral Pulse Rate 76 71 75 Respiratory Rate 16 18 18 Blood Pressure 128/78 H 128/78 H 121/73 H Blood Pressure Mean 94 94 89 Pulse Ox 100 99 100 Oxygen Delivery Method Room Air Positive well nourished and well developed General Appearance ED: well developed; Negative for pallor HEENT Reports moist mucous membranes Neck supple Resp normal respiratory effort and clear to auscultation bilaterally Cardio regular rate, regular rhythm and no murmurs GI Inspection: abdominal distention Auscultation: hyperactive bowel sounds Palpation: soft and tender LLQ, RUQ and suprapubic; Negative for rebound tenderness present Back/Spine no CVA tenderness Extremity full ROM Neuro moves all extremities Sensorium / Orientation: alert, oriented to person, oriented to place and oriented to time Psych mental status grossly normal and thought process normal Skin no wounds General Skin Exam: Negative for jaundice or pallor MDM MDM Lab Data Labs: Laboratory Results - last 24 hr 12/11/22 11:05 WBC 9.5 RBC 5.45 H Hgb 15.7 H Hct 47.9 H MCV 87.9 MCH 28.8 MCHC 32.8 RDW Std Deviation 37.4 RDW Coeff of Timo 11.7 Plt Count 358 MPV 8.7 Immature Gran % (Auto) 0.300 Neut % (Auto) 83.3 H Lymph % (Auto) 10.4 L Mchenry % (Auto) 5.4 Eos % (Auto) 0.2 Baso % (Auto) 0.4 Absolute Neuts (auto) 7.9 H Absolute Lymphs (auto) 0.99 Nucleated RBC % 0 Sodium 138 Potassium 3.9 Chloride 105 Carbon Dioxide 27.0 Anion Gap 6 BUN 8 Creatinine 0.83 Estim Creat Clear Calc 68.57 Est GFR (MDRD) Af Amer 94 Est GFR (MDRD) Non-Af 78 BUN/Creatinine Ratio 9.6 L Glucose 100 Calcium 9.4 Total Bilirubin 0.50 AST 15 ALT 21 Alkaline Phosphatase 94 Total Protein 7.7 Albumin 3.3 Globulin 4.4 H Albumin/Globulin Ratio 0.8 L Lipase 46 Urine Color Yellow Urine Clarity Sl. Cloudy Urine pH 6.5 Ur Specific [place] 1.010 Urine Protein 15 H Urine Glucose (UA) Normal Urine Ketones 5 H Urine Occult Blood 10 H Urine Nitrite Negative Urine Bilirubin Negative Urine Urobilinogen Normal Ur Leukocyte Esterase 500 H Urine RBC 0-5 SEEN Urine WBC 25-50 SEEN Ur Squamous Epith Cells 0-5 SEEN Urine Bacteria 1+ Urine Mucus 0 SEEN Radiography Diagnostic Testing: Clinical Impression(s) from Imaging Studies Abdomen/Pelvis CT 12/11/22 10:45 IMPRESSION: Stable hepatic cysts. Changes in keeping with noncomplicated acute sigmoid diverticulitis with inflammatory changes in the pelvis. Small left ovarian follicle. Electronically Signed: Ok Dean MD at 11:52 EDT , Discharge Plan Triage Chief Complaint: Abd Pain ED Provider: Louisa Lee Dx/Rx/DC Orders Clinical Impression: Diverticulitis, Bilateral lower abdominal pain Instructions: ED Diverticulitis Prescriptions: New metronidazole 500 mg tablet 500 mg PO TID Qty: 5 0RF Rx Instructions: already has some meds at home cefdinir 250 mg/5 mL suspension for reconstitution 300 mg PO BID 5 Days Qty: 60 0RF oxycodone-acetaminophen [Percocet] 5-325 mg tablet 1 tab PO Q6H PRN (Reason: pain) 3 Days Qty: 12 0RF ondansetron 4 mg tablet,disintegrating 4 mg PO Q8H PRN PRN (Reason: Nausea) Qty: 10 0RF No Action buspirone 10 mg tablet 10 mg PO BID Qty: 180 1RF metronidazole 500 mg tablet 500 mg PO BID Rx Instructions: START DATE WAS 12-09-22. TAKE ONE TABLET BY MOUTH TWICE A DAY FOR 7 DAYS. ciprofloxacin HCl 500 mg tablet 500 mg PO BID Rx Instructions: START DATE WAS 12-09-22. TAKE ONE TABLET BY MOUTH TWICE A DAY FOR 7 DAYS. Primary Care Provider: Aisha Figueroa Referrals: Aisha Figueroa MD [Primary Care Provider] - Activity Restrictions/Additional Instructions: If your pain gets worse or you cannot tolerate your antibiotics please return to the emergency room. Please be aware that the liquid antibiotic can discolor stools burgundy colored. Do not be alarmed by this. Return to the ER if you have a progression or worsening your symptoms. Please follow-up with your primary care doctor as well as a GI doctor. Disposition Disposition: Home, Self Care
[2022-12-11] MEDS: 0.9% Normal Saline 1,000 ML 1000 ML IV (11:02)
[2022-12-11] MEDS: Ondansetron 4 MG/2 ML Vial IV (11:02)
[2022-12-11] MEDS: Morphine 4 MG/ML Syringe IV ×2 (11:03→12:55)
[2022-12-11 11:13] LABS: Mucous, Urine 0 SEEN /hpf (<or=2+)
[2022-12-11 11:18] LABS: Absolute Lymphocyte Count 0.99 X10^3/uL (0.83-4.51); Absolute Neutrophil Count 7.9 X10^3/uL (2.0-7.7); Basophil# 0.04 X10^3/uL; Basophil% 0.4 % (0-1); Color, Urine Yellow (Yellow); Eosinophil# 0.02 X10^3/uL; Eosinophils% 0.2 % (0-5); Glucose, Dipstick Normal (Normal); Hematocrit 47.9 % (37-47); Hemoglobin 15.7 g/dL (12.0-15.0); Ketone-Dipstick 5 mg/dl (Negative); Leukocyte Esterase-Dipstick 500 /ul (Negative); Lymphocyte # 0.99 X10^3/ul (0.83-4.51); Lymphocyte % 10.4 % (19-41); Mean Corp Hgb Conc 32.8 g/dL (32-36); Mean Corpuscular Hgb 28.8 pg (27.0-32.0); Mean Corpuscular Volume 87.9 fL (81-99); Mean Platelet Vol. 8.7 fl (6.2-12.0); Monocyte# 0.51 X10^3/uL; Monocyte% 5.4 % (0-10); NRBC Flagged by Analyzer 0 % (0-5); Neutrophil # 7.93 X10^3/uL (2.7-7.7); Neutrophil % 83.3 % (47-70); Nitrite-Dipstick Negative (Negative); Occult Blood-Urine 10 /ul (Negative); Platelet Count 358 K/mm3 (150-450); Protein-Dipstick 15 mg/dl (Negative); RBC Distribution Width CV 11.7 % (11.6-14.6); RBC Distribution Width SD 37.4 fl (35.1-43.9); Red Blood Count 5.45 M/mm3 (4.2-5.4); Urine Bilirubin Dipstick Negative (Negative); Urine Clarity Sl. Cloudy (Clear); Urine Urobilinogen Normal (Normal); Urine pH 6.5 (5.0 - 8.0); White Blood Count 9.5 K/mm3 (4.4-11.0)
[2022-12-11 11:25] LABS: Bacteria 1+ /hpf (None Seen); Red Blood Cells-Urine 0-5 SEEN /hpf (0-5); Squamous Epithelial Cells - UA 0-5 SEEN /hpf (5-10); White Blood Cells 25-50 SEEN /hpf (0-5)
[2022-12-11 11:33] LABS: ALB/GLOB Ratio 0.8 RATIO (0.9-2.4); AST(SGOT) 15 U/L (15-37); Alanine Aminotransfer ALT/SGPT 21 U/L (13-56); Albumin, Serum 3.3 g/dL (3.2-5.0); Alkaline Phosphatase 94 U/L (45-117); Anion Gap 6 (5-15); BUN 8 mg/dL (7-18); BUN/Creat Ratio 9.6 RATIO (10-20); Calcium,Total 9.4 mg/dL (8.5-10.1); Chloride 105 mmol/L (98-107); Creatinine, Serum 0.83 mg/dL (0.55-1.02); EST Glomerular Filtration Rate 78 mL/min (>60); Est Glom Filt Rate - Afr Amer 94 mL/min (>60); Estimated Creatinine Clearance 68.57 ml/min; Globulin 4.4 g/dL (2.2-4.2); Glucose 100 mg/dL (74-106); Lipase 46 U/L (13-75); Potassium 3.9 mmol/L (3.5-5.1); Protein, Total 7.7 g/dL (6.4-8.2); Sodium Level 138 mmol/L (136-145)
[2022-12-11] MEDS: Ketorolac 15 MG/ML Vial IV (12:55)
[2022-12-11 12:57] VITALS: BP 121/73; PULSE 75; RESP 18; TEMP 36.5; O2SAT 100
[2022-12-11 13:41] VITALS: BP 125/74; PULSE 63; RESP 16; TEMP 36.7; O2SAT 100
[2022-12-11] MEDS: oxyCODONE 5 MG Tablet PO (14:29)
== END 2022-12-11 14:30 | disposition home or self-care (01) ==
PROVIDERS: Emergency Provider Emergency Medicine; PCP Internal Medicine; Visit Provider Emergency Medicine
DX: R10.31 Right lower quadrant pain (principal); R11.0 Nausea; F41.9 Anxiety disorder, unspecified; Z79.899 Other long term (current) drug therapy; F17.210 Nicotine dependence, cigarettes, uncomplicated
CPT/HCPCS: 74177; 80053; 81001; 83690; 85025; 87086; 87088; 96361; 96374; 96375; 96376; 99283; J7030; Q9967; A4216; J2405

== ENCOUNTER → 2022-12-29 | Outpatient (CLI) | payer SELFPAY ==
--- NOTE | 2022-12-29 14:17 | RAD_ITS ---
STUDY: X-RAY - ABDOMEN/PELVIS REASON FOR EXAM: Female, 47 years old. Abdominal cramping. TECHNIQUE: Single AP view of the abdomen / pelvis on 2 images. COMPARISON: None. FINDINGS: Normal visualized lung bases. Normal bowel gas pattern without disproportionate dilatation or free intra-abdominal air. Moderate amount of feces in the colon. . The visualized liver, spleen and kidneys are grossly normal in size and morphology. Phleboliths. Normal visualized osseous structures. RAD/Abdomen Single View IMPRESSION: Moderate amount of feces in the colon. No other abnormality. Electronically Signed: Clint Elise MD at 9:33 EDT ,
== END | disposition home or self-care (01) ==
LOC: RAD 14:14
PROVIDERS: PCP Internal Medicine; Referring Provider Internal Medicine Gastroenterology; Visit Provider Internal Medicine Gastroenterology
DX: K58.9 Irritable bowel syndrome, unspecified (principal); R10.9 Unspecified abdominal pain
CPT/HCPCS: 74018

== ENCOUNTER → 2023-05-08 | Outpatient (CLI) | payer OTHER, SELFPAY ==
--- NOTE | 2023-05-08 07:32 | BI_ITS ---
MAMMOGRAPHY - BILATERAL SCREENING 3-D TOMOSYNTHESIS REASON FOR EXAM: Female, 48 years old. Routine annual screening mammogram. 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 TECHNIQUE: 2-D mammograms and 3-D Tomosynthesis of the breast (s) were performed. CAD was performed. COMPARISON: February 13, 2021 FINDINGS: The breast composition is composed of scattered fibroglandular density. Stable normal lymph nodes and scattered benign-appearing calcifications. No dominant masses, suspicious microcalcifications, asymmetries, skin thickening or nipple retraction. BI/SCRN MAMM (CAD)W/NAGA BILAT IMPRESSION: No interval change and no mammographic signs of malignancy. Routine yearly mammogram recommended. ASSESSMENT CATEGORY: BIRADS Category 2: Benign. A letter regarding these results will be sent to the patient by the facility within 30 days. FOLLOW UP RECOMMENDATION: Yearly follow up mammogram recommended. (A) Approximately 10% of breast cancers are not detected by mammography. A normal mammogram should not delay biopsy of a clinically suspicious abnormality. Electronically Signed: Clint Elise MD at 12:24 EST ,
--- OUTSIDE RECORDS SUMMARY | 2023-05-08 07:37 | XMS RPT_ITS | CCD ---
Author Name Unknown Address [id number] [place] [address] Organization [facility] Care Team Providers Care Complaint Clerk Name Role Phone LIOR Lara RN, Karon Sommers Unavailable Unavailabl e Gonzalo DOMINGUEZ, Kira Jones Unavailable [phone] LIOR Lara RN, Karon Sommers Unavailable Unavailabl e Unavailable Primary Care Provider UnavailFRANCISCA Christianson Referring Unavailable ESTEBAN PINK Referring Unavailable ESTEBAN PINK Referring Unavailable ESTEBAN PINK Referring Unavailable Allergies Allergy Classification Reported Allergen(s) Allergy Type Date of Onset Reaction(s) Facility (4 sources) amoxicillin / clavulanate drug allergy 12-01-2016 [facility] (4 sources) codeine drug allergy 12-01-2016 [facility] (4 sources) Amoxicillin / Clavulanate; Translations: [AMOXICILLIN-POT CLAVULANATE] Drug Allergy 01-31-2005 [facility] Work Phone: (4 sources) Cefuroxime; Translations: [CEFUROXIME AXETIL] Drug Allergy 05-31-2009 [facility] Work Phone: (4 sources) Codeine; Translations: [CODEINE] Drug Allergy 01-31-2005 [facility] Work Phone: (4 sources) predniSONE; Translations: [PREDNISONE] Drug Allergy 06-20-2016 Intolerance [facility] Medications Completed/Discontinued Medications Medication Drug Class(es) Dates Sig (Normalized) Sig (Original) [id number] 200 actuat albuterol 0.09 mg/actuat metered dose inhaler (3 sources) beta2-Adrenergic Agonist Start: 01-28-2017 take 2 puff(s) by inhalation every four hours as needed albuterol HFA (PROAIR HFA) 90 mcg/actuation inhaler Inhale 2 Puffs as instructed every 4 hours as needed. 1 Inhaler 0 01/28/2017 Active Problems Active Problems Problem Classification Problem Date Documented Da te Episodic/Chronic Abdominal pain (1 source) Lower abdominal pain, unspecified; Translations: [Lower abdominal pain] Onset: 04-21-2023 Episodic Diverticulosis and diverticulitis (2 sources) Diverticulitis of intestine, part unspecified, without perforation or abscess without bleeding; Translations: [Diverticulosis of intestine, part unspecified, without perforation or abscess without bleeding] Onset: 04-21-2023 Chronic Genitourinary symptoms and ill-defined conditions (3 sources) Genuine stress incontinence; Translations: [Stress incontinence (female) (male)] Onset: 05-26-2014 05-26-2014 Chronic Nausea and vomiting (1 source) Nausea; Translations: [Nausea] Onset: 04-30-2023 Episodic Other gastrointestinal disorders (1 source) Diarrhea, unspecified; Translations: [Diarrhea, unspecified type] Onset: 04-30-2023 Episodic Other upper respiratory disease (3 sources) Allergic rhinitis; Translations: [Allergic rhinitis, unspecified] Onset: 07-22-2005 07-22-2005 Chronic Past or Other Problems Problem Classification Problem Date Documented Da te Episodic/Chronic Genitourinary symptoms and ill-defined conditions (4 sources) Increased frequency of urination; Translations: [Frequency of micturition] Onset: 12-01-2016 12-01-2016 Episodic Other female genital disorders (4 sources) Abnormal vaginal bleeding; Translations: [Abnormal uterine and vaginal bleeding, unspecified] Onset: 12-01-2016 12-01-2016 Episodic Other gastrointestinal disorders (4 sources) Intra-abdominal and pelvic swelling, mass and lump; Translations: [Right lower quadrant abdominal swelling, mass and lump] Onset: 12-01-2016 12-01-2016 Episodic Spondylosis; intervertebral disc disorders; other back problems (3 sources) Musculoskeletal disorder of the neck; Translations: [Other specified dorsopathies, cervical region] Onset: 01-27-2006 01-27-2006 Episodic Results Test Name Value Interpretation Reference Range Facil ity Vital Signs Date Time Vital Sign Value Performing Clinician Owen delarosa 12-01-2016 10:39-0400 BMI (Body Mass Index) 21.57 kg/m2 Kira Sánchez MD [facility] 12-01-2016 10:39-0400 Body Temperature 97.3 [degF] Kira Sánchez MD [facility] 12-01-2016 10:39-0400 BP Diastolic 78 mm[Hg] Kira Sánchez MD [facility] 12-01-2016 10:39-0400 BP Systolic 110 mm[Hg] Kira Sánchez MD [facility] 12-01-2016 10:39-0400 Height 160.02 cm Kira Sánchez MD [facility] 12-01-2016 10:39-0400 Pulse (Heart Rate) 65 /min Kira Sánchez MD [facility] 12-01-2016 10:39-0400 Respiratory Rate 16 /min Kira Sánchez MD [facility] 12-01-2016 10:39-0400 Weight 55.25 kg Kira Sánchez MD [facility] Encounters Encounter Date Encounter Type Care Provider Facility Start: 04-30-2023 End: 04-30-2023 ambulatory ESTEBAN Domo PINK Facility:[facility] Start: 04-30-2023 End: 04-30-2023 Subsequent hospital visit by physician Julio Piña Work Phone: CT Scan Start: 04-30-2023 End: 05-01-2023 ambulatory ESTEBAN K APRYL Facility:[facility] Start: 04-21-2023 End: 04-21-2023 ambulatory FRANCISCA DIDI Facility:[facility] Start: 04-21-2023 End: 04-22-2023 ambulatory FRANCISCA TOLBERT Facility:[facility] Start: 04-21-2023 End: 04-21-2023 Subsequent hospital visit by physician Julio Piña ([facility]) Work Phone: CT Scan Procedures Date Procedure Procedure Detail Performing Clinician Start: 04-21-2023 Ct abdomen & pelvis w/contrast material [facility] Provider Start: 12-01-2016 End: 12-01-2016 Urinalysis Kira Velazquez Start: 12-01-2016 End: 12-01-2016 Urinalysis nonauto w/o scope Kira Sánchez MD Work Phone: Start: 10-09-2012 Lipid 1996 panel - S luisa or Plasma Ct ([facility]) Work Phone: Plan of Treatment Date Care Activity Detail Author Start: 04-30-2026 Diabetes Screening Diabetes Screening [facility] Start: 04-21-2026 Diabetes Screening Diabetes Screening [facility] Start: 05-11-2022 Depression Assessment Depression Assessment [facility] Start: 05-22-2019 Urine microalbumin profile DTaP,Tdap,Td Vaccine (2 - Td or Tdap) [facility] Start: 2019 Lipid panel Lipid Screening [facility] Start: 2019 Screening for malignant neoplasm of colon [facility] Start: 12-01-2016 End: 12-01-2016 *CUUID - Urine FANNY Culture - Identificatn *CUUID - Urine FANNY Culture - Identificatn [facility] Start: 12-01-2016 End: 12-01-2016 Bacteria genital culture *CUV - Culture, VAG/CX Comprehensive [facility] Start: 12-01-2016 End: 12-03-2016 Transvaginal us, non-ob US Transvaginal [facility] Start: 12-01-2016 End: 12-03-2016 Us exam, pelvic, complete US Pelvis [facility] Start: 2014 Screening for malignant neoplasm of breast Mammogram Screening [facility] Start: 01-16-2014 Screening for malignant neoplasm of cervix Pap Testing [facility] Start: 03-20-2011 Screening for malignant neoplasm of cervix HPV Testing [facility] Start: 1992 Hepatitis C screening Hepatitis C Screening [facility] Start: 1992 HIV screening HIV Screening [facility] Start: 1980 Pneumococcal vaccination [facility] Start: 1974 Covid-19 Vaccine (#1) Covid-19 Vaccine (#1) [facility] Immunizations Immunization Date Immunization Notes Care Provider Refugio haines 03-11-2013 influenza virus vaccine, unspecified formulation Ct ([facility]) Work Phone: [facility] 05-22-2009 tetanus toxoid, redu steve diphtheria toxoid, and acellular pertussis vaccine, adsorbed Ct ([facility]) Work Phone: [facility] 08-24-2006 RHO(D) immune globul in- IV or IM Ct ([facility]) Work Phone: [facility] Work Phone: 04-22-2006 influenza virus vaccine, unspecified formulation Ct ([facility]) Work Phone: [facility] Work Phone: 02-06-2005 tetanus and diphther ia toxoids, adsorbed, preservative free, for adult use (2 Lf of tetanus toxoid and 2 Lf of diphtheria toxoid) Ct ([facility]) Work Phone: [facility] Work Phone: Payers Date Payer Category Payer Private Health Insurance [facility] CHO[employer] [id number] 2023-Present [phone] [address] [place] [address] O [id number] 2023 Unknown [id number] Social History Date Type Detail Facility Start: 10-01-2012 Tobacco smoking stat us [facility] Occasional tobacco smoker [facility] History of tobacco use Cigarette Smoker C [facility] Start: 10-01-2012 Tobacco use and exposure Smoke less tobacco non-user [facility] Start: 12-21-2021 Alcohol intake Current non-dr multimedia manager of alcohol (finding) [facility] Start: 04-15-2020 End: 12-21-2021 History of Social function [facility] Start: 04-15-2020 End: 12-21-2021 Tobacco use panel [facility] Adult Depression Screening Assessment 0 [facility] Start: 10-01-2012 Tobacco Comment 5 cigarettes per wee k [facility] Start: 1974 Sex Assigned At Not on file C [facility] Medical Equipment Procedure Code Equipment Code Equipment Origin al Text Equipment Identifier Dates Sling Pubvagnl [facility] - [id number] Start: 06-20-2014 Progress note 04-30-2023 Note Date & Type Note Facility 04-30-2023 Note HNO ID: [id number] Author: Nicole Webb RN Service: Radiology Author Type: Registered Nurse Type: Progress Notes Filed: 04/30/2023 2:02 PM Note Text: Radiology Service Progress Note DATE OF SERVICE: April 30, 2023 TIME: 2:01 PM PATIENT WEIGHT: 107 LBS PATIENT IDENTITY VERIFICATION COMPLETED USING TWO (2) STANDARD IDENTIFIERS: Name and Date of confirmed by patient verbally. FALL SCREENING: Has the patient had 2 falls in the last year or 1 fall with injury or currently using an Ambulatory Assistive Device (Walker, Cane, Wheelchair, Crutches, etc.)? No PATIENT GENDER DATA: Female. status: : No status: NO. ALLERGIES: Reviewed and unchanged CONTRAST ALLERGY: No EXAM: CT -CONTRAST INDUCED NEPHROPATHY RISK FACTORS: Not applicable CREATININE: Creatinine Date Value Ref Range Status 04/21/2023 0.74 0.58 - 0.96 mg/dL Final 03/10/2016 0.79 0.58 - 0.96 mg/dL Final 02/08/2016 0.74 0.58 - 0.96 mg/dL Final Estimated Glomerular Filtration Rate Date Value Ref Range Status 04/21/2023 99 >=60 mL/min/1.73m? Final Comment: Estimated Glomerular Filtration Rate (eGFR) is calculated using the 2020 CKD-EPI creatinine equation. This equation utilizes serum creatinine, sex, and age as parameters. The creatinine assay has traceable calibration to isotope dilution-mass spectrometry. Refer to KDIGO guidelines for clinical interpretation. In patients with unstable renal function, e.g. those with acute kidney injury, the eGFR may not accurately reflect actual GFR. eGFR- Date Value Ref Range Status 04/27/2012 >60 Final P.O.C.T. RESULTS: N/A April 30, 2023 TREATMENT: N/A IV SITE: Ambulatory: A peripheral IV was started in the Right antecubital site with a Angio cath: 22 gauge. and A Saline lock was inserted per protocol IV SITE APPEARANCE: Clean,Dry and Intact SIGNATURE: Nicole Webb RN PATIENT NAME: Tigist Franco DATE: April 30, 2023 TIME: 2:01 PM [facility] Progress note 04-30-2023 Note Date & Type Note Facility 04-30-2023 Note HNO ID: [id number] Author: Pat oHng RT(R) Service: Radiology Author Type: Clipper Machine Operator Type: Progress Notes Filed: 04/30/2023 2:25 PM Note Text: Radiology Service Progress Note PATIENT NAME: Tigist Franco DATE OF SERVICE: April 30, 2023 TIME: 2:25 PM PATIENT IDENTITY VERIFICATION COMPLETED USING TWO (2) IDENTIFIERS: Name and Date of confirmed by patient verbally. FALL SCREENING: Has the patient had 2 falls in the last year or 1 fall with injury or currently using an Ambulatory Assistive Device (Walker, Cane, Wheelchair, Crutches, etc.)? No PATIENT GENDER DATA: Female. status: : No status: NO. PATIENT RELEVANT IMPLANT DATA REVIEWED: Yes RADIOLOGY DEPARTMENT: CT; Exam(s) Completed: Abdomen/Pelvis PERIPHERAL IV DATA: Site assessment: Clean,Dry and Intact, Site disposition Discontinued SIGNED BY: RT Carlos Eduardo(R) April 30, 2023 2:25 PM [facility] Progress note 04-21-2023 Note Date & Type Note Facility 04-21-2023 Note HNO ID: [id number] Author: Eileen Gavin CT Service: ? Author Type: Technologist Type: Progress Notes Filed: 04/21/2023 2:25 PM Note Text: Radiology Service Progress Note PATIENT NAME: Tigist Franco DATE OF SERVICE: April 21, 2023 TIME: 2:25 PM PATIENT IDENTITY VERIFICATION COMPLETED USING TWO (2) IDENTIFIERS: Name and Date of confirmed by patient verbally. FALL SCREENING: Has the patient had 2 falls in the last year or 1 fall with injury or currently using an Ambulatory Assistive Device (Walker, Cane, Wheelchair, Crutches, etc.)? No PATIENT GENDER DATA: Female. status: : No status: NO. PATIENT RELEVANT IMPLANT DATA REVIEWED: Yes RADIOLOGY DEPARTMENT: CT; Exam(s) Completed: Abdomen/Pelvis PERIPHERAL IV DATA: Not applicable SIGNED BY: JULIO Pennington April 21, 2023 2:25 PM [facility] Progress note 04-21-2023 Note Date & Type Note Facility 04-21-2023 Note HNO ID: [id number] Author: Nicole Webb RN Service: Radiology Author Type: Registered Nurse Type: Progress Notes Filed: 04/21/2023 2:16 PM Note Text: Radiology Service Progress Note DATE OF SERVICE: April 21, 2023 TIME: 2:15 PM PATIENT WEIGHT: 107 LBS PATIENT IDENTITY VERIFICATION COMPLETED USING TWO (2) STANDARD IDENTIFIERS: Name and Date of confirmed by patient verbally. FALL SCREENING: Has the patient had 2 falls in the last year or 1 fall with injury or currently using an Ambulatory Assistive Device (Walker, Cane, Wheelchair, Crutches, etc.)? No PATIENT GENDER DATA: Female. status: : No status: NO. ALLERGIES: Reviewed and unchanged CONTRAST ALLERGY: No EXAM: CT -CONTRAST INDUCED NEPHROPATHY RISK FACTORS: Not applicable CREATININE: Creatinine Date Value Ref Range Status 03/10/2016 0.79 0.58 - 0.96 mg/dL Final 02/08/2016 0.74 0.58 - 0.96 mg/dL Final 04/27/2012 0.87 0.70 - 1.40 mg/dL Final eGFR-All Other Races Date Value Ref Range Status 03/10/2016 >60 . Final Comment: eGFR (Estimated GFR) Units of measure: mL/min/1.73 meters squared eGFR is derived from the reexpressed MDRD Study equation using the following parameters: serum creatinine, age, gender and race. The creatinine assay has been calibrated to be traceable to IDMS. An eGFR <60 mL/min/1.73m2 for >3 months is consistent with chronic kidney disease. Refer to KDOQI guidelines for clinical interpretation. In patients with unstable renal function, e.g. those with acute kidney injury, the eGFR may not accurately reflect actual GFR. eGFR- Date Value Ref Range Status 04/27/2012 >60 Final P.O.C.T. RESULTS: N/A April 21, 2023 TREATMENT: N/A IV SITE: Ambulatory: A peripheral IV was started in the Right antecubital site with a Angio cath: 22 gauge. and A Saline lock was inserted per protocol IV SITE APPEARANCE: Clean,Dry and Intact SIGNATURE: Nicole Webb RN PATIENT NAME: Tigist Franco DATE: April 21, 2023 TIME: 2:15 PM [facility] History of Present illness Narrative 04-21-2023 Nicole Webb RN - 04/21/2023 3:40 PM ESTREileen tony, CT - 04/21/2023 3:40 PM EST Note Date & Type Note Facility 04-21-2023 History of Presen t illness Narrative Radiology Service Progress Note DATE OF SERVICE: April 21, 2023 TIME: 2:15 PM PATIENT WEIGHT: 107 LBS PATIENT IDENTITY VERIFICATION COMPLETED USING TWO (2) STANDARD IDENTIFIERS: Name and Date of confirmed by patient verbally. FALL SCREENING: Has the patient had 2 falls in the last year or 1 fall with injury or currently using an Ambulatory Assistive Device (Walker, Cane, Wheelchair, Crutches, etc.)? No PATIENT GENDER DATA: Female. status: : No status: NO. ALLERGIES: Reviewed and unchanged CONTRAST ALLERGY: No EXAM: CT -CONTRAST INDUCED NEPHROPATHY RISK FACTORS: Not applicable CREATININE: Creatinine Date Value Ref Range Status 03/10/2016 0.79 0.58 - 0.96 mg/dL Final 02/08/2016 0.74 0.58 - 0.96 mg/dL Final 04/27/2012 0.87 0.70 - 1.40 mg/dL Final eGFR-All Other Races Date Value Ref Range Status 03/10/2016 >60 . Final Comment: eGFR (Estimated GFR) Units of measure: mL/min/1.73 meters squared eGFR is derived from the reexpressed MDRD Study equation using the following parameters: serum creatinine, age, gender and race. The creatinine assay has been calibrated to be traceable to IDMS. An eGFR <60 mL/min/1.73m2 for >3 months is consistent with chronic kidney disease. Refer to KDOQI guidelines for clinical interpretation. In patients with unstable renal function, e.g. those with acute kidney injury, the eGFR may not accurately reflect actual GFR. eGFR- Date Value Ref Range Status 04/27/2012 >60 Final P.O.C.T. RESULTS: N/A April 21, 2023 TREATMENT: N/A IV SITE: Ambulatory: A peripheral IV was started in the Right antecubital site with a Angio cath: 22 gauge. and A Saline lock was inserted per protocol IV SITE APPEARANCE: Clean,Dry and Intact SIGNATURE: Nicole Webb RN PATIENT NAME: Tigist Franco DATE: April 21, 2023 TIME: 2:15 PM Radiology Service Progress Note PATIENT NAME: Tigist Franco DATE OF SERVICE: April 21, 2023 TIME: 2:25 PM PATIENT IDENTITY VERIFICATION COMPLETED USING TWO (2) IDENTIFIERS: Name and Date of confirmed by patient verbally. FALL SCREENING: Has the patient had 2 falls in the last year or 1 fall with injury or currently using an Ambulatory Assistive Device (Walker, Cane, Wheelchair, Crutches, etc.)? No PATIENT GENDER DATA: Female. status: : No status: NO. PATIENT RELEVANT IMPLANT DATA REVIEWED: Yes RADIOLOGY DEPARTMENT: CT; Exam(s) Completed: Abdomen/Pelvis PERIPHERAL IV DATA: Not applicable SIGNED BY: JULIO Pennington April 21, 2023 2:25 PM documented in this encounter [facility] History of Past illness Narrative 05-26-2014 Note Date & Type Note Facility documented as of this encounter (statuses as of 04/22/2023) [facility] History of Past illness Narrative 05-26-2014 Note Date & Type Note Facility documented as of this encounter (statuses as of 04/22/2023) [facility] History of Past illness Narrative 05-26-2014 Note Date & Type Note Facility documented as of this encounter (statuses as of 05/01/2023) [facility] Summary Purpose Family History No Family History Records FoundNo Family History Records FoundNo Family History Records Found Advance Directives No Advanced Directives Records FoundNo Advanced Directives Records FoundNo Advanced Directives Records Found Additional Source Comments INFORMATION SOURCE (unrecogn ized section and content) DATE CREATED AUTHOR AUTHOR'S ORGANIZ ATION 01/26/2019 [facility] DATE CREATED AUTHOR AUTHOR'S ORGANIZ ATION 05/01/2023 [facility] Source Comments (unrecognize d section and content) In the event this informatio n is protected by the Federal Confidentiality of Alcohol and Drug Abuse Patient Records regulations: The Federal rules restrict any use of the information to criminally investigate or prosecute any alcohol or drug abuse patient.[facility] the event this information is protected by the Federal Confidentiality of Alcohol and Drug Abuse Patient Records regulations: The Federal rules restrict any use of the information to criminally investigate or prosecute any alcohol or drug abuse patient.[facility] the event this information is protected by the Federal Confidentiality of Alcohol and Drug Abuse Patient Records regulations: The Federal rules restrict any use of the information to criminally investigate or prosecute any alcohol or drug abuse patient.[facility] Reason for Visit (unrecogniz ed section and content) FOR RECORDS PERTAINING TO PATIENTS WHO ARE OR HAVE BEEN ENROLLED IN A CHEMICAL DEPENDENCY/SUBSTANCEABUSE PROGRAM, SOME INFORMATION MAY BE OMITTED. This clinical summary was aggregated from multiple sources. Caution should be exercised in using it in the provision of clinical care. This summary normalizes information from multiple sources, and as a consequence, information in this document may materially change the coding, format and clinical context of patient data. In addition, data may be omitted in some cases. CLINICAL DECISIONS SHOULD BE BASED ON THE PRIMARY CLINICAL RECORDS. [facility] [employer] [facility]. provides no warranty or guarantee of the accuracy or completeness of information in this document.
== END | disposition home or self-care (01) ==
LOC: OPBI 07:31
PROVIDERS: PCP Internal Medicine; Referring Provider Internal Medicine; Visit Provider Internal Medicine
DX: Z12.31 Encounter for screening mammogram for malignant neoplasm of breast (principal)
CPT/HCPCS: 77063; 77067

== ENCOUNTER → 2024-01-15 | Outpatient (CLI) | payer BC, SELFPAY ==
--- NOTE | 2024-01-15 10:40 | RAD_ITS ---
INDICATION: Cervical radiculopathy EXAMINATION/TECHNIQUE: X-RAY - XR Spine Cervical 2 or 3 Views COMPARISON: No relevant prior comparison study available FINDINGS: The vertebral bodies are normal in height. No definite fracture demonstrated. No subluxation. C1-C2 alignment is maintained. Prevertebral soft tissues are unremarkable. RAD/Cerv Spine 2 or 3 Views IMPRESSION: No evidence of fracture or subluxation. MRI may be helpful for further evaluation if clinically indicated. Electronically Signed: Meaghan Hyatt MD at 8:05 EDT ,
[2024-01-15 11:52] LABS: Absolute Lymphocyte Count 1.63 X10^3/uL (0.83-4.51); Absolute Neutrophil Count 4.6 X10^3/uL (2.0-7.7); Basophil# 0.06 X10^3/uL; Basophil% 0.9 % (0-1); Eosinophil# 0.07 X10^3/uL; Hematocrit 43.6 % (37-47); Hemoglobin 13.9 g/dL (12.0-15.0); Lymphocyte # 1.63 X10^3/ul (0.83-4.51); Lymphocyte % 23.9 % (19-41); Mean Corp Hgb Conc 31.9 g/dL (32-36); Mean Corpuscular Hgb 28.5 pg (27.0-32.0); Mean Corpuscular Volume 89.3 fL (81-99); Mean Platelet Vol. 9.4 fl (6.2-12.0); Monocyte# 0.43 X10^3/uL; Monocyte% 6.3 % (0-10); NRBC Flagged by Analyzer 0 % (0-5); Neutrophil # 4.62 X10^3/uL (2.7-7.7); Neutrophil % 67.6 % (47-70); Platelet Count 359 K/mm3 (150-450); RBC Distribution Width CV 11.9 % (11.6-14.6); RBC Distribution Width SD 38.9 fl (35.1-43.9); Red Blood Count 4.88 M/mm3 (4.2-5.4); White Blood Count 6.8 K/mm3 (4.4-11.0)
[2024-01-15 12:35] LABS: ALB/GLOB Ratio 1.1 RATIO (0.9-2.4); AST(SGOT) 20 U/L (15-37); Alanine Aminotransfer ALT/SGPT 21 U/L (13-56); Albumin, Serum 3.5 g/dL (3.2-5.0); Alkaline Phosphatase 87 U/L (45-117); Anion Gap 4 (5-15); BUN 10 mg/dL (7-18); BUN/Creat Ratio 12.4 RATIO (10-20); Calcium,Total 9.4 mg/dL (8.5-10.1); Chloride 107 mmol/L (98-107); Cholesterol 188 mg/dL (200); Creatinine, Serum 0.81 mg/dL (0.55-1.02); EST Glomerular Filtration Rate 80 mL/min (>60); Est Glom Filt Rate - Afr Amer 97 mL/min (>60); Globulin 3.2 g/dL (2.2-4.2); Glucose 82 mg/dL (74-106); High Density Lipoprotein 108 mg/dL; Potassium 4.2 mmol/L (3.5-5.1); Protein, Total 6.7 g/dL (6.4-8.2); Sodium Level 138 mmol/L (136-145); Triglycerides 39 mg/dL; Very Low Density Lipoprotein 8 mg/dL (5-40)
== END | disposition home or self-care (01) ==
PROVIDERS: PCP Internal Medicine; Referring Provider Internal Medicine; Visit Provider Internal Medicine
DX: Z00.00 Encounter for general adult medical examination without abnormal findings (principal); M54.12 Radiculopathy, cervical region
CPT/HCPCS: 36415; 72040; 80053; 80061; 85025

== ENCOUNTER → 2024-02-24 | Outpatient (CLI) | payer BC, SELFPAY ==
--- NOTE | 2024-02-24 14:59 | NEURO ---
NCS and/or EMG Patient Report Ordering Doctor: Aisha Figueroa DATE OF SERVICE: 02/24/24 Tigist is for electrodiagnostic testing of the right upper limb. She reports numbness and tingling in the right hand as well as pain on the right side of the neck. Electrodiagnostic findings: Right median motor nerve demonstrates normal distal latency, amplitude and conduction velocity. Normal right ulnar motor response, including conduction across the elbow. Normal median and ulnar F?waves. Sensory responses are within normal limits needle EMG testing was performed the right upper limb. All muscles tested, including the right cervical paraspinals, showed no evidence of denervation with normal motor unit action potentials. Electrodiagnostic impression: This is a normal electrodiagnostic study of the right upper limb. There is no electrodiagnostic evidence for peripheral neuropathy, including carpal tunnel or cubital tunnel syndrome. There is no electrodiagnostic evidence for cervical radiculopathy. Multi Select Codes Neurology Neurology Interp Codes: 22768-36 Musc test done w/n test comp (interp) and 84377-22 Nrv cndj test 7-8 studies (interp)
== END | disposition home or self-care (01) ==
PROVIDERS: PCP Internal Medicine; Referring Provider Internal Medicine; Visit Provider Internal Medicine
DX: M54.12 Radiculopathy, cervical region (principal)
CPT/HCPCS: 95886; 95910

== ENCOUNTER → 2024-05-09 | Outpatient (CLI) | payer BC, SELFPAY ==
--- NOTE | 2024-05-09 08:17 | BI_ITS ---
MAMMOGRAPHY - BILATERAL SCREENING 3-D TOMOSYNTHESIS REASON FOR EXAM: Female, 49 years old. Breast Cancer Screening PERTINENT HISTORY: No significant family history. TECHNIQUE: 2-D mammograms and 3-D Tomosynthesis of the breast (s) were performed. CAD was performed. COMPARISON: 05/08/2023 FINDINGS: The breast composition is heterogeneously dense that can obscure small breast masses. Scattered benign calcifications are seen. No dense spiculated masses or suspicious microcalcifications are identified. No architectural distortion is identified. There is no skin thickening or retraction. There has been no significant change since the prior study. BI/SCRN MAMM (CAD)W/NAGA BILAT IMPRESSION: No mammographic signs of malignancy. Routine yearly mammograms recommended. ASSESSMENT CATEGORY: BIRADS Category 1: Negative. A letter regarding these results will be sent to the patient by the facility within 30 days. FOLLOW UP RECOMMENDATION: Yearly follow up mammogram recommended. (A) Approximately 10% of breast cancers are not detected by mammography. A normal mammogram should not delay biopsy of a clinically suspicious abnormality. Electronically Signed: Hilario Hanna MD at 20:33 EST ,
== END | disposition home or self-care (01) ==
LOC: OPBI 08:17
PROVIDERS: PCP Internal Medicine; Referring Provider Internal Medicine; Visit Provider Internal Medicine
DX: Z12.31 Encounter for screening mammogram for malignant neoplasm of breast (principal)
CPT/HCPCS: 77063; 77067

== ENCOUNTER → 2025-01-20 | Outpatient (CLI) | payer BC, SELFPAY ==
--- NOTE | 2025-01-20 09:10 | RAD_ITS ---
PROCEDURE: HIP, UNI W/ PELVIS 2-3 VIEWS; SACRUM-COCCYX MIN 2 VIEWS 01/20/2025 REASON FOR EXAM: RIGHT HIP PAIN; TAIL BONE PAIN TECHNIQUE: Procedure Code: RADHP; RADSAC Modality: DX Procedure: HIP, UNI W/ PELVIS 2-3 VIEWS; SACRUM-COCCYX 3 VIEWS Laterality: Right (for the hip and pelvis portion). COMPARISON: Abdomen study 12/29/2022 RAD/HIP, UNI W/ Pelvis 2-3 Views IMPRESSION: Mild degenerative changes are seen of the visualized lower lumbar spine, includ ing disc narrowing at L4-L5, at least. Minimal sacroiliac joint degenerative changes are seen. No significant hip joint abnormality is noted. No evidence of femoral head osteonecrosis. Otherwise, the sacrum and coccyx show no fracture or other significant osseous change. Reading Location: [place] [id number]
--- NOTE | 2025-01-20 09:10 | RAD_ITS ---
PROCEDURE: HIP, UNI W/ PELVIS 2-3 VIEWS; SACRUM-COCCYX MIN 2 VIEWS 01/20/2025 REASON FOR EXAM: RIGHT HIP PAIN; TAIL BONE PAIN TECHNIQUE: Procedure Code: RADHP; RADSAC Modality: DX Procedure: HIP, UNI W/ PELVIS 2-3 VIEWS; SACRUM-COCCYX 3 VIEWS Laterality: Right (for the hip and pelvis portion). COMPARISON: Abdomen study 12/29/2022 RAD/Sacrum-Coccyx min 2 Views IMPRESSION: Mild degenerative changes are seen of the visualized lower lumbar spine, includ ing disc narrowing at L4-L5, at least. Minimal sacroiliac joint degenerative changes are seen. No significant hip joint abnormality is noted. No evidence of femoral head osteonecrosis. Otherwise, the sacrum and coccyx show no fracture or other significant osseous change. Reading Location: [place] [id number]
[2025-01-20 09:54] LABS: Hematocrit 43.1 % (37-47); Hemoglobin 14.5 g/dL (12.0-15.0); Immature Granulocytes Count 0.030 X10^3/uL (0.0-0.0); Mean Corp Hgb Conc 33.6 g/dL (32-36); Mean Corpuscular Volume 86.5 fL (81-99); Mean Platelet Vol. 9.0 fl (6.2-12.0); NRBC Flagged by Analyzer 0 % (0-5); Platelet Count 340 K/mm3 (150-450); RBC Distribution Width CV 11.9 % (11.6-14.6); RBC Distribution Width SD 37.8 fl (35.1-43.9); Red Blood Count 4.98 M/mm3 (4.2-5.4); White Blood Count 7.7 K/mm3 (4.4-11.0)
[2025-01-20 11:46] LABS: AST(SGOT) 21 U/L (<=31); Alanine Aminotransfer ALT/SGPT 11 U/L (<=34); Albumin, Serum 4.0 g/dL (3.5-5.0); Alkaline Phosphatase 83 U/L (35-104); Anion Gap 9 (5-15); BUN 10 mg/dL (4-19); BUN/Creat Ratio 13.8 RATIO (10-20); Calcium,Total 8.8 mg/dL (7.6-11.0); Carbon Dioxide 22.9 mmol/L (21.0-32.0); Chloride 107 mmol/L (98-108); Globulin 2.5 g/dL (2.2-4.2); Glucose 90 mg/dL (70-99); Potassium 4.5 mmol/L (3.3-5.1)
[2025-01-20 12:13] LABS: Cholesterol 192 mg/dL (<=200); Low Density Lipoprotein Calc. 91 mg/dL; Triglycerides 56 mg/dL; Very Low Density Lipoprotein 11 mg/dL (5-40); cholesterol:hdl ratio screen 2.14
== END | disposition home or self-care (01) ==
LOC: RAD 09:10
PROVIDERS: PCP Internal Medicine; Referring Provider Internal Medicine; Visit Provider Internal Medicine
DX: Z00.00 Encounter for general adult medical examination without abnormal findings (principal); M25.551 Pain in right hip; M53.3 Sacrococcygeal disorders, not elsewhere classified; F41.1 Generalized anxiety disorder; F41.0 Panic disorder [episodic paroxysmal anxiety]
CPT/HCPCS: 36415; 72220; 73502; 80053; 80061; 84439; 84443; 85025

== ENCOUNTER → 2025-03-06 | Outpatient (CLI) | payer BC, SELFPAY ==
[2025-03-06 17:53] LABS: Follicle Stimulating Hormone 10.5 mIU/mL; Vitamin D,25 Hydroxy 31.6 ng/mL (30-100)
[2025-03-11 14:08] LABS: Anti-Mullerian Hormone,Serum 0.310 ng/mL (.)
== END | disposition home or self-care (01) ==
PROVIDERS: PCP Internal Medicine; Visit Provider Obstetrics & Gynecology
DX: N95.1 Menopausal and female climacteric states (principal)
CPT/HCPCS: 36415; 82306; 82627; 82670; 83001; 83498; 83516; 84402; 84403; 82626